=== PATIENT | male | born 1970 | race Caucasian/White ===

== ENCOUNTER 2020-02-23 05:33 | Outpatient (RCR) | payer OTHER, BC ==
[~2020-02-23] VITALS: Ht 198 cm; Wt 190.0 kg
[2020-02-23] MEDS ORDERED: TIZA4CAP PO (12:56)
[2020-02-23] MEDS ORDERED: DULO60CA6 PO (12:56)
[2020-02-23] MEDS ORDERED: LISI10TA2 PO (13:04)
[2020-02-23] MEDS ORDERED: HYDR-3820 PO (13:04)
[2020-02-23] MEDS ORDERED: SILD100T67 PO (13:04)
[2020-02-23] MEDS ORDERED: FURO40TA4 PO (13:04)
[2020-02-23] MEDS ORDERED: GABA300C PO (13:04)
[2020-02-23] MEDS ORDERED: AMIT50TA3 PO (13:04)
[2020-02-23] MEDS ORDERED: CARI3CAP PO (13:04)
[2020-02-23] MEDS ORDERED: CELE100C PO (13:04)
[2020-02-23] MEDS ORDERED: PANT40TA52 PO (13:04)
[2020-02-25] MEDS ORDERED: OXYC-471 PO ×2 (11:40→11:41)
== END 2020-02-23 13:35 | disposition home or self-care (01) ==
LOC: PREOP 05:33
PROVIDERS: ATTEND Orthopaedic Surgery
DX: Z01.812 Encounter for preprocedural laboratory examination (principal); S83.242A Other tear of medial meniscus, current injury, left knee, initial encounter; Z20.828 Contact with and (suspected) exposure to other viral communicable diseases
CPT/HCPCS: 87635

== ENCOUNTER → 2020-02-25 | Day surgery (SDC) | payer OTHER, BC ==
--- NOTE | 2020-02-18 10:16 | HISTORY AND PHYSICAL ---
DATE OF SERVICE: ADMISSION HISTORY AND PHYSICAL This will be for outpatient surgery on 02/25/2020 for left knee arthroscopy. 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 He fell on his flexed knee. He has had grinding, popping and catching in his knee since the time of his fall as well as pain and swelling due to functional impairment and failure to improve with conservative measures. The patient elected to proceed with surgical intervention. REVIEW OF SYSTEMS: No chest pain, no shortness of breath, no dysuria. PAST MEDICAL HISTORY: Lumbar spine, depression, kidney stones, cardiomyopathy, obstructive sleep apnea, neuropathy. PAST SURGICAL HISTORY: ORIF left elbow, gastric bypass, kidney stone removal, cholecystectomy. FAMILY HISTORY: Significant for hypertension, congestive heart failure, COPD, Crohn disease, rheumatoid arthritis, diabetes. PRIMARY CARE PROVIDER: [facility]. MEDICATIONS: Lisinopril, furosemide, Cymbalta, pantoprazole, Vraylar, hydrocodone, Celebrex, Lasix, Protonix, amitriptyline, Neurontin. ALLERGIES: ____. SOCIAL HISTORY: The patient denies alcohol, tobacco use. RADIOGRAPHS: Reveal some diffuse joint space narrowing, patellofemoral joint space narrowing as well. PHYSICAL EXAMINATION: GENERAL: The patient is well-developed, well-nourished, in no acute distress. HEENT: Normocephalic, atraumatic. Pupils are equal, round, reactive to light. Oropharynx is clear. NECK: Supple, no lymphadenopathy. LUNGS: Clear to auscultation bilaterally. HEART: Regular rate and rhythm. ABDOMEN: Soft, nontender, nondistended. EXTREMITIES: The left knee demonstrates mild effusion. He has pain with patellar loading, tenderness along his posterior joint line with flexion. Negative anterior and posterior drawer. No varus valgus laxity. He is tender along his medial joint lines as well. Crepitus noted with patellar loading. 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 PLAN: Left knee arthroscopy, chondroplasty and partial meniscectomy. Risks, benefits, options, ramifications and recovery have been discussed at length with the patient. He understands and wishes to proceed. Job ID: [id number] DocumentID: [id number] Dictated Date: 02/16/2020 12:28:52 Toggle Press Operator Date: 02/16/2020 12:52:36 Dictated By: PETER GILLIS MD
[2020-02-25] VITALS (12 sets, daily range): BP systolic 129–141; BP diastolic 74–86
[~2020-02-25] VITALS: Ht 198 cm; Wt 190.0 kg
[~2020-02-25] MED LIST: AMIT50TA3 PO; BUPIVACAINE 0.25% 30 ML (SENSORCAINE) VIAL ONE; CARI3CAP PO; CELE100C PO; DULO60CA6 PO; FURO40TA4 PO; GABA300C PO; HYDR-3820 PO; HYDROmorphone 2 MG/ML VIAL (DILAUDID) IV ONE; LACTATED RINGERS 1,000 ML IV PRN; LISI10TA2 PO; MIDAZOLAM 2 MG/2 ML (VERSED) VIAL ONE; ONDANSETRON 4 MG/2 ML (SDV) Z0FRAN IVP PRN; OXYC-471 PO; PANT40TA52 PO; SILD100T67 PO; TIZA4CAP PO; ceFAZolin INJECTION 1,000 MG in WATER (STERILE) FOR INJECTION 10 ML IV ONE; fentaNYL INJECTION 100 MCG/2 ML AMP ONE; morphine INJ 10 MG/ML 1ML (SYR OR VIAL) IVP ONE; morphine PF (DURAMORPH) 10 MG/10 ML AMP ONE; oxyCODONE/APAP 5/325MG (PERCOCET 5) TABLET PO PRN
--- NOTE | 2020-02-25 07:47 | Progress Note-Pre Operative ---
Pre-Operative Progress Note H&P Reviewed The H&P was reviewed, patient examined and no changes noted. Date Seen by Provider: Feb 25, 2020 Time Seen by Provider: 07:46 Date H&P Reviewed: Feb 25, 2020 Time H&P Reviewed: 07:46 Pre-Operative Diagnosis: left knee medial meniscus tear and chondromalacia PETER GILLIS MD Feb 25, 2020 07:47
--- NOTE | 2020-02-25 07:48 | Progress Note-Post Operative ---
Post-Operative Progess Note Surgeon (s)/Vp Integrity (s) Surgeon PETER GILLIS MD Vp Integrity: Elio Shen Pre-Operative Diagnosis left knee medial meniscus tear and chondromalacia Post-Operative Diagnosis left knee medial meniscus tear and chondromalacia of the medial and lateral femoral condyles and trochlea Procedure & Operative Findings Date of Procedure 02/25/20 Procedure Performed/Findings left knee arthroscopic partial medial meniscectomy and chondroplasty of the medi al and lateral femoral condyles and trochlea Anesthesia Type GETA Estimated Blood Loss Estimated blood loss (mL): minimal Specimens/Packing Specimens Removed none Packing: none PETER GILLIS MD Feb 25, 2020 07:48
--- NOTE | 2020-02-25 10:49 | Anesthesia-General Post-Op ---
General Patient Condition Mental Status/LOC: Same as Preop Cardiovascular: Satisfactory Nausea/Vomiting: Absent Respiratory: Satisfactory Pain: Controlled Complications: Absent Post Op Complications Complications None Follow Up Care/Instructions Patient Instructions None needed. Anesthesia/Patient Condition Patient Condition Patient is doing well, no complaints, stable vital signs, no apparent adverse anesthesia problems. JANIS KENYON DO Feb 25, 2020 10:49
--- NOTE | 2020-02-25 11:43 | NUR ---
FOLLOW UP APPOINTMENT ALREADY MADE PER PATIENT AND .
--- NOTE | 2020-02-25 13:16 | Physical Therapy Ortho Eval ---
PT Orthopedic Evaluation Type of Surgery Knee Scope left Prior Level of Function Current Living Status: Spouse Locomotion (Upon Admit): Independent Established Durable Medical Eq: Crutches Subjective Subjective Patient in bed pre tx, agrees to PT, has no complaints of pain. No numbness in left leg Entry Into Home: Stairs With Railing Motor Control Motor Control: Motor Control WNL ROM left knee extensin +2 degrees, flexion 90 degrees Transfer SCALE: Activities may be completed with or without assistive devices. 1-Vkeakkrxqj-jxlelcz completes the activity by him/herself with no assistance from a helper. 5-Set-up or Clean-up Assistance-helper sets up or cleans up; patient completes activity. [place] assists only prior to or following the activity. 4-Supervision or Touching Assistance-helper provides verbal cues and/or touching/steadying and/or contact guard assistance as patient completes activity. Assistance may be provided throughout the activity or intermittently. 3-Partial/Moderate Assistance-helper does LESS THAN HALF the effort. [place] lifts, holds or supports trunk or limbs, but provides less than half the effort. 2-Substantial/Maximal Assistance-helper does MORE THAN HALF the effort. [place] lifts or holds trunk or limbs and provides more than half the effort. 7-Nmwiuwspp-edjtle does ALL the effort. Patient does none of the effort to complete the activity. Or, the assistance of 2 or more helpers is required for the patient to complete the activity. If activity was not attempted, code reason: 7-Patient Refused. 9-Not Applicable-not attempted and the patient did not perform the activity before the current illness, exacerbation or injury. 10-Not Attempted due to Environmental Limitations-(lack of equipment, weather restraints, etc.). 88-Not Attempted due to Medical Conditions or Safety Concerns. Transfers (B, C, W/C) (QC): 4 Gait Summary/Comments Patient ambulated 125' with a rolling walker with SBA, went up and down 1 step using a rolling walker with CGA, cues for foot placement. Patient has steady ambulation Treatment Rendered Treatment: Therapeutic Exercises, Gait Train, Step Train Exercise Instruction: Quad Sets, Heel Slides, Ankle Pumps Assessment/Goals Goal Time Frame: 1 Visit Understands HEP: Yes Safe Ambulation: Yes Plan Treatment Plan: Discharge PT/Family Agrees to Plan: Yes Time Time In: 1155 Time Out: 1206 Total Billed Treatment Time: 11 Billed Treatment Time 1 visit EVL 11' DANIEL BURGER PT Feb 25, 2020 13:16
--- NOTE | 2020-02-25 18:06 | OPERATIVE REPORT ---
DATE OF SERVICE: PREOPERATIVE DIAGNOSES: 1. Left knee medial meniscus tear. 2. Left knee chondromalacia of the medial femoral condyle. POSTOPERATIVE DIAGNOSES: 1. Left knee medial meniscus tear. 2. Left knee chondromalacia of the medial femoral condyle. 3. Left knee chondromalacia of the lateral femoral condyle. 4. Left knee chondromalacia of the trochlea. PROCEDURES PERFORMED: 1. Left knee arthroscopic partial medial meniscectomy. 2. Left knee arthroscopic chondroplasty of the medial femoral condyle. 3. Left knee arthroscopic chondroplasty of the lateral femoral condyle. 4. Left knee arthroscopic chondroplasty of the trochlea. SURGEON: Tomy Gillis MD. ENGINEERING SPECIALIST: Elio Shen, who assisted throughout the procedure and closed the incisions. ANESTHESIA: General endotracheal by Dr. Reis. TOURNIQUET TIME: Not applicable. ESTIMATED BLOOD LOSS: Minimal. DRAINS: None. COMPLICATIONS: None. POSTOPERATIVE PLAN: Routine arthroscopy protocol. The patient was transferred to the recovery room awake and in stable condition. STATEMENT OF MEDICAL NECESSITY: The patient is a 49-year-old gentleman with complaints of left medial knee pain, catching, locking and swelling. He had tenderness along the medial joint line and pain medially with Lior's. He also had some joint space narrowing noted radiographically. Due to functional impairment and failure to improve with conservative measures, the patient elected to proceed with surgical intervention. Examination under anesthesia revealed range of motion 0/0/130 with negative Brandan, negative anterior and posterior drawer. No varus or valgus laxity, negative pivot shift. Arthroscopic findings of the patella demonstrated grade IV chondral loss centrally in a 15 x 20 area with no unstable chondral flaps were noted otherwise. The trochlea demonstrated grade II chondral flap centrally in a 10 x 10 area. The medial and lateral gutters were clear. The ACL and PCL were intact. The lateral compartment demonstrated grade II to III chondral flaps of the central portion of the femoral condyle in a 10 x 12 area. The medial compartment demonstrated a flap tear of the posterior horn/body junction involving approximately 20% of the junction of the meniscus and there were grade II to III chondral flaps of the central portion of the femoral condyle in a 10 x 12 area. PROCEDURE IN DETAIL: After the risks and benefits of the procedure were discussed and questions were answered, informed consent was signed and placed on the chart, the operative site was confirmed in the preoperative holding area initialed by the surgeon. The patient was then transferred to the operating room and after adequate levels of general endotracheal anesthetic were obtained, a timeout was called, confirming the operative site. Examination under anesthesia was performed with the above findings noted. The left lower extremity was prepped and draped in the usual sterile fashion. The knee joint was injected with 60 mL of fluid and a standard inferolateral portal placed with the arthroscope under direct visualization, inferior medial portal was created. The menisci and cruciates were carefully probed with the above findings noted. The unstable chondral flaps on the trochlea were debrided with a shaver back to a stable edge. Scope was redirected into the lateral compartment and unstable chondral flaps on the lateral femoral condyle were debrided with the shaver back to a stable edge. Scope was redirected into the medial compartment and the unstable chondral flaps in the medial femoral condyle were debrided with shaver back to a stable edge and the medial meniscus flap tear was debrided with a shaver back to a stable edge. This was carefully probed with no further tearing or instability noted. The knee was copiously irrigated. The port sites were closed with 4-0 nylon in a simple interrupted fashion. The knee was injected with Duramorph. The port sites were infiltrated with plain Marcaine. A soft dressing was applied and the patient was transferred to the recovery room awake and in a stable condition. Job ID: [id number] DocumentID: [id number] Dictated Date: 02/25/2020 10:28:38 Correctional Officer Captain Date: 02/25/2020 18:05:32 Dictated By: TOMY GILLIS MD
== END ==
LOC: SDC 07:41
PROVIDERS: ATTEND Orthopaedic Surgery
DX: S83.242A Other tear of medial meniscus, current injury, left knee, initial encounter (principal); M94.262 Chondromalacia, left knee; I10 Essential (primary) hypertension; F32.9 Major depressive disorder, single episode, unspecified; G62.9 Polyneuropathy, unspecified; M06.9 Rheumatoid arthritis, unspecified; G47.33 Obstructive sleep apnea (adult) (pediatric); Z79.899 Other long term (current) drug therapy; Z88.8 Allergy status to other drugs, medicaments and biological substances
CPT/HCPCS: 87081

== ENCOUNTER 2020-03-31 05:41 | Outpatient (RCR) | payer OTHER, BC ==
[~2020-03-31 05:41] MED LIST changes: -BUPIVACAINE 0.25% 30 ML (SENSORCAINE) VIAL ONE; -HYDROmorphone 2 MG/ML VIAL (DILAUDID) IV ONE; -LACTATED RINGERS 1,000 ML IV PRN; -LISI10TA2 PO; +LISI10TA25 PO; -MIDAZOLAM 2 MG/2 ML (VERSED) VIAL ONE; -ONDANSETRON 4 MG/2 ML (SDV) Z0FRAN IVP PRN; -OXYC-471 PO; +OXYC1TAB11 PO; -ceFAZolin INJECTION 1,000 MG in WATER (STERILE) FOR INJECTION 10 ML IV ONE; -fentaNYL INJECTION 100 MCG/2 ML AMP ONE; -morphine INJ 10 MG/ML 1ML (SYR OR VIAL) IVP ONE; -morphine PF (DURAMORPH) 10 MG/10 ML AMP ONE; -oxyCODONE/APAP 5/325MG (PERCOCET 5) TABLET PO PRN
== END 2020-06-29 | disposition home or self-care (01) ==
LOC: PREOP 05:41
PROVIDERS: ATTEND Orthopaedic Surgery
DX: Z01.818 Encounter for other preprocedural examination (principal)

== ENCOUNTER 2021-01-12 18:27 | Emergency (ER) | payer OTHER, BC ==
[~2021-01-12] VITALS: Ht 195 cm; Wt 193.6 kg
[~2021-01-12 18:27] MED LIST changes: -DULO60CA6 PO; +DULO60CA7 PO
--- OUTSIDE RECORDS SUMMARY | 2021-01-12 18:33 | XMS REPORT | Encounter Summary ---
Author Author [facility] Organization [facility] Address Unknown Phone Unavailable Care Team Providers Care Orthopaedic Physician Assistant Name Role Phone Felicitas Prado Unavailable [phone] Madeline Richmond RN Unavailable Unavailable Lawrence Jorge MD Unavailable Jonathan Saldaña MD Unavailable Unavailable Rogelio Joiner PA-C PCP Reason for Referral * Pain Authorization (Routine) Referred By Contact Referred To Contact Status Reason Specialty Diagnoses / Procedures Edna Santacruz APRN-NP [address] [place] [address] [facility] [address] [place] [address] Authorized Anesthesia Pain Diagnoses Lumbar radiculopathy P rocedures K[facility] AMB SPINE INJECT SNRB/TFESI LUMBAR/SACRAL Electronically signed by Edna ROBERTS at Reason for Visit * Reason Comments Follow Up fuv on low back pain Encounter Details Care Team Description Date Type Department Edna Santacruz APRN-NP [address] [place] [address] [phone] Lumbar radiculopathy (Primary Dx); Chronic right-sided low back pain without sciatica; Medication management; S/P epidural steroid injection 11/15/2020 Office Visit [facility] Med: [facility]: [id number] [place] [id number] Social History Date Tobacco Use Types Packs/Day Years Used Never Smoker 0 0 Smokeless Tobacco: Chew Current User Comments: current use of smokless tobacc o (chew) Comments Alcohol Use Standard Drinks/Week Yes 8 (1 standard drink = 0.6 o z pure alcohol) Alcohol Habits Answer Date Recorded How often do you have a drink containing alcohol? No t asked How many drinks containing alcohol do you have on No t asked a typical day when you are drinking? How often do you have six or more drinks on one Weekly 02/23/2020 occasion? Comment: Not asked Sex Assigned at Date Recorded Male 06/08/2019 3:37 PM CDT Date Recorded COVID-19 Exposure Response 12/13/2020 12:02 PM CDT In the last month, have you been in contact with No / Unsure someone who was confirmed or suspected to have Coronavirus / COVID-19? documented as of this encounter Last Filed Vital Signs Reading Time Taken Comments Vital Sign 128/61 11/15/2020 10:15 AM CDT Blood Pressure 66 11/15/2020 10:15 AM CDT Pulse 36.7 C (98.1 F) 11/15/2020 10:15 AM CDT Temperature 22 11/15/2020 10:15 AM CDT Respiratory Rate 100% 11/15/2020 10:15 AM CDT Oxygen Saturation - - Inhaled Oxygen Concentration 194.6 kg (429 lb) 11/15/2020 10:15 AM CDT Weight 198.1 cm (6' 6") 11/15/2020 10:15 AM CDT Height 49.58 11/15/2020 10:15 AM CDT Body Mass Index documented in this encounter Functional Status Date of Assessment Functional Status Response 05/07/2020 Does the patient have a hearing impairment: No 05/07/2020 Does the patient have a visual impairment: Yes 05/07/2020 Does the patient have impaired ambulation: Yes 05/07/2020 Does the patient have an activity of daily living No (ADL) impairment: 05/07/2020 Does the patient have an instrumental activity of Ye s daily living (IADL) impairment: Date of Assessment Cognitive Status Response 05/07/2020 Does the patient have a cognitive impairment: No documented as of this encounter Ordered Prescriptions Start Date End Date Prescription Sig Dispensed Refills 11/15/2020 HYDROcodone/acetaminophen Take one 45 tablet 0 (NORCO) 10/325 mg tablet tablet by mouth every 6 hours as needed for Pain 01/11/2021 01/03/2021 HYDROcodone/acetaminophen Take one 30 tablet 0 (NORCO) 10/325 mg tablet tablet by mouth every 6 hours as needed for Pain 12/14/2020 01/03/2021 HYDROcodone/acetaminophen Take one 30 tablet 0 (NORCO) 10/325 mg tablet tablet by mouth every 6 hours as needed for Pain documented in this encounter Progress Notes * Edna Santacruz, WELDING MACHINE OPERATOR HELPER ARC-VIDEO OPERATOR - 11/15/2020 10:00 AM CDT SPINE CENTER CLINIC NOTE SUBJECTIVE: Kevin Grant is a 50 y.o.-year-old male with history of cardiomyopat hy and L2-L3 disc extrusion, who presents for scheduled follow up for right-side d radicular low back pain. The patient was last seen via telehealth on . At that time, he was provided prescription refills for hydrocodone for 3 carmina hs as well as recommend continuing with walking program and home exercises. Terrie gruber has previously underwent a right L3 transforaminal epidural steroid injecti on on 07/12/2020. Patient reports greater than 80% reduction in his pain that la sted greater than 3 months. Pain is now back to preprocedural level. Patient i s interested in repeating the injection at this time. He has seen Dr. Sandee bird n August for follow-up visit. Patient is scheduled to have an EMG completed in [facility]. He still needs to lose additional weight to be considered a surgical c andidate. 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 He continues to take hydrocodone with functional benefits. He denies any ad verse effects. VAS pain score is rated 7 out of 10 today. Patient does report intermittent right knee buckling with stairs. He is not currently wearing a bra ce. He denies any falls but has had some near misses. Denies any new overt wea knesses in the lower extremities. Denies any loss of control of bowel or bladde r. Last MRI lumbar spine was completed in February 2020. Review of Systems Current Outpatient Medications: amitriptyline (ELAVIL) 50 mg tablet, Take by mouth at bedtime daily., Disp : , Rfl: celecoxib (CELEBREX) 100 mg capsule, TAKE ONE (1) CAPSULE BY MOUTH TWICE DA VILMA , Disp: 180 capsule, Rfl: [address] (CYMBALTA) 30 mg capsule, Take 30 mg by mouth twice daily., D isp: , Rfl: furosemide (LASIX) 40 mg tablet, Take 40 mg by mouth daily., Disp: , Rfl: HYDROcodone/acetaminophen (NORCO) 10/325 mg tablet, Take one tablet by mout h every 6 hours as needed for Pain, Disp: 45 tablet, Rfl: 0 [START ON 12/14/2020] HYDROcodone/acetaminophen (NORCO) 10/325 mg tablet, Ta ke one tablet by mouth every 6 hours as needed for Pain, Disp: 30 tablet, Rfl: 0 [START ON 01/11/2021] HYDROcodone/acetaminophen (NORCO) 10/325 mg tablet, T joy one tablet by mouth every 6 hours as needed for Pain, Disp: 30 tablet, Rfl: 0 lisinopriL (ZESTRIL) 10 mg tablet, Take by mouth daily., Disp: , Rfl: pantoprazole DR (PROTONIX) 40 mg tablet, Take 40 mg by mouth daily., Disp: , Rfl: pregabalin (LYRICA) 75 mg capsule, , Disp: , Rfl: tiZANidine (ZANAFLEX) 4 mg tablet, Take one-half tablet to one tablet by mo uth twice daily as needed., Disp: 90 tablet, Rfl: 3 Verification of Patch Placement and Integrity - Lidocaine 5%, , Disp: , Rfl : vilazodone (VIIBRYD) 20 mg tablet, Take 40 mg by mouth daily., Disp: , Rfl: VRAYLAR 3 mg cap, 1.5 mg. 1.5 MG, Disp: , Rfl: Allergies Allergen Reactions Carvedilol SEE COMMENTS Physical Exam Vitals: 11/15/20 1015 BP: 128/61 BP Source: Arm, Right Upper Patient Position: Sitting Pulse: 66 Resp: 22 Temp: 36.7 C (98.1 F) TempSrc: Oral SpO2: 100% Weight: (!) 194.6 kg (429 lb) Height: 198.1 cm (78") PainSc: Seven Oswestry Total Score:: 52 Pain Score: Seven Body mass index is 49.58 kg/m. General: 50 y.o. male appears stated age, in no acute distress HEENT: Normocephalic, atraumatic Neck: No thyroidmegaly Cardiovascular: Well perfused Pulmonary: Unlabored respirations Extremities: No cyanosis, clubbing, or edema Skin: Warm and dry Psychiatric: Appropriate mood and affect Musculoskeletal: Decreased range of motion with lumbar flexion, extension, and l ateral rotation. Tender to palpation at lower lumbar facets on the right. Facet loading is positive bilaterally. Neurologic: Weakness with right knee extension, ankle dorsiflexion, and EHL 3/5 otherwise, lower extremity myotomes are all 5/5. Decreased sensation right L4-S 1 dermatomal distribution otherwise, lower extremity dermatomes are all intact t o light touch. Deep tendon reflexes are symmetric at patella and achilles. Do wnward Babinski. No ankle clonus. IMPRESSION: 1. Lumbar radiculopathy 2. Chronic right-sided low back pain without sciatica 3. Medication management 4. S/P epidural steroid injection PLAN: 1. Lifestyle modifications. Recommend activity as tolerated. Avoid provocativ e maneuvers. Keep spine in neutral position. Continue with weight loss efforts. Patient is scheduled to see nutrition thru his work. He is consider seeing a ba [facility] surgeon. 2. Medications. Patient provided prescription for 3 months of Hydrocodone. P atient provided with 1 additional month of 45 tabs and then decreased back to 30 tabs per month for the remaining 2 months. Medication usage and safety reviewed .I have counseled him to take the minimally effective dose, avoid taking it sc heduled and chronically, and to only utilize when he is having severe pain. 3. Therapy. Continue with home exercises. Discussed hinged knee brace. Patient will contact us if he would like a prescription. 4. Imaging/Diagnostics. Ordered UDS today. 5. Interventions. Recommend repeating right L3 TFESI. Patient has previously u nderwent injection with greater than 80% relief for more than 3 months. He is a ble to take less opioid pain medication after injections. Discussed risks of th e procedure including pain, bleeding, infection, and damage to nearby structures . Patient has elected to proceed with injection at this time. 6. Follow-up. Patient to follow-up for injection and in 3 months for medicatio n refills. ADDENDUM: UDS from 11/15/2020 demonstrated metabolites of hydrocodone, hydromorph one, and nor hydrocodone, which are all metabolites of hydrocodone and consisten t with current medication prescriptions. There is also an metabolites of ethano l including ethyl glucuronide and ethyl sulfate. documented in this encounter Plan of Treatment Order Schedule Name Type Priority Associated Diag noses 2 Occurrences starting 11/15/2020 until 11/15/2021, 1 completed [facility] AMB SPINE INJECT Procedures Routine Lumbar rad iculopathy SNRB/TFESI LUMBAR/SACRAL Expected: 11/15/2020 (Approximate), Expi res: 11/15/2021 AMPHETAMINES-URINE RANDOM Lab Routine Lumb ar radiculopathy Medication management Expected: 11/15/2020 (Approximate), Expi res: 11/15/2021 BARBITURATES-URINE RANDOM Lab Routine Medi cation management Expected: 11/15/2020 (Approximate), Expi res: 11/15/2021 BENZODIAZEPINES-URINE Lab Routine Medicati on management RANDOM Expected: 11/15/2020 (Approximate), Expi res: 11/15/2021 CANNABINOIDS-URINE RANDOM Lab Routine Medi cation management Expected: 11/15/2020 (Approximate), Expi res: 11/15/2021 COCAINE-URINE RANDOM Lab Routine Medicatio n management Expected: 11/15/2020 (Approximate), Expi res: 11/15/2021 PHENCYCLIDINES-URINE Lab Routine Medicatio n management RANDOM Expected: 11/15/2020 (Approximate), Expi res: 11/15/2021 METHADONE-URINE SCREEN Lab Routine Medicat ion management Expected: 11/15/2020 (Approximate), Expi res: 11/15/2021 OXYCODONE URINE SCREEN Lab Routine Medicat ion management Expected: 11/15/2020 (Approximate), Expi res: 11/15/2021 OPIATES 300 OR Lab Routine Medication esdras gement GREATER-URINE RANDOM documented as of this encounter Results * Selective Nerve Rootblock/Transforaminal Lumbar/Sacral (12/13/2020 12:03 PM CDT) Narrative Performed At Law Johnson MD 12/13/2020 3:26 PM OTHER OUTSIDE LAB Selective Nerve Rootblock/Transforamina l Lumbar/Sacral Procedure: transforaminal epidural Laterality: right on 12/13/2020 12:03 PM Location: lumbar - L4-5 Consent: Consent obtained: verbal and written Consent given by: patient Risks discussed: allergic reaction, ble eding, bruising, infection, nerve damage, no change or worsening in pain and reaction to medication Discussed with patient the purpose of t he treatment/procedure, other ways of treating my condition, including no treatment/ procedure and the risks and benefits of the alternatives. Patie nt has decided to proceed with treatment/procedure. [place] Protocol: Relevant documents: relevant documents present and verified Test results: test results available an d properly labeled Imaging studies: imaging studies availa ble Required items: required blood products , implants, devices, and special equipment available Site marked: the operative site was mana negron Patient identity confirmed: Patient tushar ntify confirmed verbally with patient. Time out: Immediately prior to procedur e a "time out" was called to verify the correct patient, procedure, equipme nt, clinical support associate and site/side marked as required Procedures Details: Indications: pain and diagnostic evalua tion Prep: chlorhexidine Patient position: prone Estimated Blood Loss: minimal Specimens: none Number of Joints: 1 Guidance: fluoroscopy Contrast: Procedure confirmed with cont rast under live fluoroscopy. Needle and Epidural Catheter: quincke Needle size: 25 G Injection procedure: Incremental inject ion Patient tolerance: Patient tolerated th e procedure well with no immediate complications. Pressure was applied, an d hemostasis was accomplished. Comments: DESCRIPTION OF PROCEDURE: T he procedure risks and benefits were explained to the patient. Informed co nsent was obtained. The patient was placed in the prone position on the flu oroscopy table with a pillow under the abdomen to help reduce lumbar lordo sis. Blood pressure cuff and oxygen saturation monitor were attached and the patient was monitored throughout the entire procedure. The L3 vertebral body was identified with the use of fluoroscopy in the AP v iew; the C-arm was obliqued to obtain a Bowers view. The right L 3 pedicle was visualized. The skin was prepped using Chlorhexadine and reid ped in aseptic fashion. The C-arm was rotated slightly obliquely towards the left side to visualize the area just below the foramen. Skin and subc utaneous tissue were anesthetized using 3 mL of 1 percent lidocaine with a 27-gauge, 1-1/2 inch needle. Next, a 4.69-inch, 25-gauge spinal need le was slowly advanced to the 6 o'clock position to the right of the L3 pedicle just cephalad to the superior articular process. The latte r part of the needle advancement was performed with the C-arm in the lateral view. When the needle tip was visualized to be in the right L3 neural foramen, the C-arm was changed back to AP view. Then, 0.6 mL of cont rast dye was injected. There was spread of dye revealing right L4 nerve root. After negative aspiration, a 2 mL solution containing 7.5 mg of dexa methasone and 0.5 mL of 1 percent lidocaine was injected in increments. T he stylet was reinserted and then removed. After the procedure, the patie nt's blood pressure, heart rate, oxygen saturation, and VAS pain score w ere recorded in the chart. There were no complications. The manolo ent tolerated the procedure well and was brought to the room for observation in stable condition and discharged with written discharge instructions. PLAN OF CARE: The patient is to follo w up in the interventional spine clinic in 3 weeks. The patient was advised to contact the interventional spine center for any of the following: Fever, chills, or night sweats. New onset severe sharp pain. Any new upper or lower extremity weakne ss or numbness. Any questions regarding the procedure. If unable to contact the interventional spine center, the patient was instructed to go to the local emergency room. Performing Organization Address City/State/ZIP Code P jos[place] Number OTHER OUTSIDE LAB documented in this encounter Visit Diagnoses Diagnosis Lumbar radiculopathy - Primary Thoracic or lumbosacral neuritis or rad iculitis, unspecified Chronic right-sided low back pain witho ut sciatica Medication management Encounter for long-term (current) use o f other medications S/P epidural steroid injection documented in this encounter Discontinued Medications Start Date End Date Medication Sig Discontinue Reason 09/17/2020 11/15/2020 HYDROcodone/acetaminophen Take one (NORCO) 10/325 mg tablet tablet by mouth every 12 hours as needed for Pain 08/20/2020 11/15/2020 HYDROcodone/acetaminophen Take one (NORCO) 10/325 mg tablet tablet by mouth every 12 hours as needed for Pain documented as of this encounter Additional Health Concerns Assessment Noted Time A fall risk assessment has been completed for the pat ient 11/15/2020 10:16 AM CDT documented as of this encounter
--- OUTSIDE RECORDS SUMMARY | 2021-01-12 18:33 | XMS REPORT | Encounter Summary ---
Author Author [facility] Organization [facility] Address Unknown Phone Unavailable Care Team Providers Care Hospice Spiritual Care Coordinator Name Role Phone JohanRolandFelicitasreta ROBERTS Unavailable [phone] Madeline Richmond RN Unavailable Unavailable Lawrence Jorge MD Unavailable Jonathan Saldaña MD Unavailable Unavailable Rogelio Joiner PA-C PCP Reason for Referral * Radiology Services (Routine) Referred By Contact Referred To Contact Status Reason Specialty Diagnoses / [place] [address] [place] [address] New Request Radiology Procedures FLUORO GUIDANCE FOR SPINE INJ RAD Electronically signed by Law Johnson MD at Reason for Visit * Radiology Services (Routine) Referred By Contact Referred To Contact Status Reason Specialty Diagnoses / [place] [address] [place] [address] New Request Radiology Procedures FLUORO GUIDANCE FOR SPINE INJ RAD Encounter Details Care Team Description [place] [address] [place] [address] [phone] 12/13/2020 Hospital Imaging: [facility], Encounter [facility] [address] [place] [phone] Social History Date Tobacco Use Types Packs/Day [...] / COVID-19? documented as of this encounter Functional Status Date of Assessment [...] impairment: No documented as of this encounter Medications at Time of Discharge Start Date End Date Medication Sig Dispensed Refills 03/19/2016 amitriptyline (ELAVIL) 50 Take by 0 mg tablet mouth at bedtime daily. 11/11/2020 celecoxib (CELEBREX) 100 TAKE ONE (1) 180 capsule 0 mg capsule CAPSULE BY MOUTH TWICE DAILY duloxetine DR (CYMBALTA) Take 30 mg by 0 30 mg capsule mouth twice daily. 03/31/2019 furosemide (LASIX) 40 mg Take 40 mg by 0 tablet mouth daily. 11/15/2020 HYDROcodone/acetaminophen Take one 45 tablet 0 (NORCO) 10/325 mg tablet tablet by mouth every 6 hours as needed for Pain 03/19/2016 lisinopriL (ZESTRIL) 10 Take by 0 mg tablet mouth daily. 05/12/[address] Take 40 mg by 0 (PROTONIX) 40 mg tablet mouth daily. 04/30/2020 pregabalin (LYRICA) 75 mg Take 150 mg 0 capsule by mouth twice daily. 11/03/2019 tiZANidine (ZANAFLEX) 4 Take one-half 90 tablet 3 mg tablet tablet to one tablet by mouth twice daily as needed. 12/17/2018 Verification of Patch 0 Placement and Integrity - Lidocaine 5% vilazodone (VIIBRYD) 20 Take 40 mg by 0 mg tablet mouth daily. 01/20/2020 VRAYLAR 3 mg cap 1.5 mg. 1.5 0 MG 12/14/2020 01/03/2021 HYDROcodone/acetaminophen Take one 30 tablet 0 (NORCO) 10/325 mg tablet tablet by mouth every 6 hours as needed for Pain 01/11/2021 01/03/2021 HYDROcodone/acetaminophen Take one 30 tablet 0 (NORCO) 10/325 mg tablet tablet by mouth every 6 hours as needed for Pain documented as of this encounter Discharge Disposition Code Departure Means Destination Disposition Home Home or Self Care documented in this encounter Plan of Treatment Not on filedocumented as of this encounter Procedures Comments Procedure Name Priority Date/Time Associated Diag nosis FLUORO GUIDANCE FOR SPINE Routine 12/13/2020 INJ RAD 1:36 PM CDT documented in this encounter Results * FLUORO GUIDANCE FOR SPINE INJ RAD (12/13/2020 1:36 PM CDT) Specimen Narrative Performed At This order has been auto finalized and does not conta in a result. [facility] Performing Organization Address City/State/ZIP Code P josé Number [facility] documented in this encounter Visit Diagnoses Not on filedocumented in this encounter Additional Health Concerns Assessment Noted Time A fall risk assessment has been completed for the pat ient 11/15/2020 10:16 AM CDT documented as of this encounter
--- OUTSIDE RECORDS SUMMARY | 2021-01-12 18:33 | XMS REPORT | Clinical Summary ---
Author Author [facility] Organization [facility] Address Unknown Phone Unavailable Care Team Providers Care Fur Mixer Operator Name Role Phone Felicitas Prado Unavailable [phone] Madeline Richmond RN Unavailable Unavailable Lawrence Jorge MD Unavailable Jonathan Saldaña MD Unavailable Unavailable Rogelio JoinerC PCP Source Comments Some departments are not documenting in the electronic medical record. If you d o not see the information that you expected, contact Release of Information in [facility] Information Management department at [phone] for further assistan ce in locating additional records.[facility] Allergies Comments Active Allergy Reactions Severity Noted Date Carvedilol SEE COMMENTS Low 03/19/2015 Medications End Date Status Medication Sig Dispensed Refills Start Date Active furosemide (LASIX) 40 mg Take 40 mg by 0 03/31 tablet mouth daily. [address] Take 40 mg by 0 (PROTONIX) 40 mg tablet mouth daily. 0 Active Verification of Patch 0 Placement and Integrity - 9 Lidocaine 5% Active amitriptyline (ELAVIL) 50 Take by 0 mg tablet mouth at 7 bedtime daily. Active lisinopriL (ZESTRIL) 10 Take by 0 mg tablet mouth daily. 7 Active tiZANidine (ZANAFLEX) 4 Take one-half 90 tablet 3 mg tablet tablet to one 0 tablet by mouth twice daily as needed. Active VRAYLAR 3 mg cap 1.5 mg. 1.5 0 MG [address] (CYMBALTA) Take 30 mg by 0 30 mg capsule mouth twice daily. Active pregabalin (LYRICA) 75 mg Take 150 mg 0 04/19 capsule by mouth 1 twice daily. Active vilazodone (VIIBRYD) 20 Take 40 mg by 0 mg tablet mouth daily. Active celecoxib (CELEBREX) 100 TAKE ONE (1) 180 capsule 0 mg capsule CAPSULE BY 1 MOUTH TWICE DAILY Active HYDROcodone/acetaminophen Take one 45 tablet 0 (NORCO) 10/325 mg tablet tablet by 1 mouth every 6 hours as needed for Pain Active HYDROcodone/acetaminophen Take one 30 tablet 0 (NORCO) 10/325 mg tablet tablet by 1 mouth every 12 hours as needed for Pain 01/03/2021 Discontinued HYDROcodone/acetaminophen Take one 30 tablet 0 (NORCO) 10/325 mg tablet tablet by 1 mouth every 6 hours as needed for Pain 01/03/2021 Discontinued HYDROcodone/acetaminophen Take one 30 tablet 0 (NORCO) 10/325 mg tablet tablet by 1 mouth every 6 hours as needed for Pain Active Problems Problem Noted Date DDD (degenerative disc disease), lumbar 11/29/2020 Lumbar polyradiculopathy 11/29/2020 Nephrolithiasis 09/08/2013 Encounters Care Team Description Date Type Specialty Edna Santacruz APRN-NP S/P epidural steroid injection (Primary Dx); Lumbar radiculopathy; Medication management 01/03/2021 Office Visit Rehabilitation [facility] Telehealth 01/03/2021 Travel Edna Santacruz APRN-NP 01/03/2021 Refill Rehabilitation [facility] Law Johnson MD 12/13/2020 Hospital Radiology Encounter Law Johnson MD 12/13/2020 Hospital Anesthesia Pain Encounter 12/13/2020 Travel Mable Breaux MD Lumbar polyradiculopathy (Primary Dx); DDD (degenerative disc disease), lumbar 11/29/2020 Office Visit Rehabilitation [facility] 11/29/2020 Travel Edna Santacruz APRN-NP Lumbar radiculopathy (Primary Dx); Chronic right-sided low back pain without sciatica; Medication management; S/P epidural steroid injection 11/15/2020 Office Visit Rehabilitation [facility] 11/15/2020 Travel Edna Santacruz APRN-DAPHNIE 11/09/2020 Refill Rehabilitation [facility] from Last 3 Months Immunizations Name Administration Dates Next Due COVID-19 (JEFF & 07/28/2020 JEFF/FADI) Recombinant Protein VACC, 0.5 mL (PF) Flu vaccine, inj 01/09/2019 unspecified (Historical) MMR Vaccine 03/25/2007 Surgical History Surgery Date Site/Laterality Comments ORIF HUMERUS left arm DECOMPRESSION GASTRIC BYPASS CHOLECYSTECTOMY URETEROSCOPY Medical History Medical History Date Comments Depression Deafness left ear Obesity Urolithiasis Anxiety 1994 Joint pain 03/19/1998 Nerve injury Varicose veins Degenerative disc disease, cervical Degenerative disc disease, lumbar Degenerative disc disease, thoracic Kidney stones 09/16/2013 Cardiomyopathy (HCC) Family History Medical History Relation Name Comments Heart problem Father Arthur Bleeding Disorders Mother Jian HX blood cl ots Heart problem Mother [place] Osteoporosis Mother Jian Relation Name Status Comments Father Arthur Mother Jian Social History Date Tobacco Use Types Packs/Day [...] PM CDT Date Recorded COVID-19 Exposure Response 01/03/2021 2:45 PM CDT In the last month, have you been in contact with No / Unsure someone who was confirmed or suspected to have Coronavirus / COVID-19? Last Filed Vital Signs Reading Time Taken Comments Vital Sign 121/73 12/13/2020 1:45 PM CDT Blood Pressure 97 12/13/2020 1:31 PM CDT Pulse 36.6 C (97.9 F) 12/13/2020 12:15 PM CDT Temperature 16 11/29/2020 1:25 PM CDT Respiratory Rate 100% 12/13/2020 1:45 PM CDT Oxygen Saturation - - Inhaled Oxygen Concentration 194.6 kg (429 lb) 01/03/2021 2:43 PM CDT Weight 198.1 cm (6' 6") 01/03/2021 2:43 PM CDT Height 49.58 01/03/2021 2:43 PM CDT Body Mass Index Plan of Treatment Health Maintenance Due Date Last Done Comments HIV SCREENING 10/12/1986 DTAP/TDAP VACCINES (1 - 10/12/1989 Tdap) HEPATITIS C SCREENING 10/12/1989 PHYSICAL (COMPREHENSIVE) 10/12/1989 EXAM INFLUENZA VACCINE 10/17/2020 01/09/2019 COVID-19 VACCINE Completed 07/28/2020 Procedures Comments Procedure Name Priority Date/Time Associated Diag nosis FLUORO GUIDANCE FOR SPINE Routine 12/13/2020 INJ RAD 1:36 PM CDT DE NJX AA&/STRD TFRML EPI Routine 12/13/2020 Lumb ar radiculopathy LUMBAR/SACRAL 1 LEVEL 12:03 PM CDT DE NERVE CONDUCTION Routine 11/29/2020 DDD (degen erative disc STUDIES 3-4 STUDIES 1:30 PM CDT disease), lumbar Lumbar radicular pain Chronic midline low back pain with sciatica, sciatica laterality unspecified Tobacco use disorder BMI 45.0-49.9, adult (HCC) Foraminal stenosis of lumbar region DE NDL EMG 1 XTR W/WO Routine 11/29/2020 DDD (deg enerative disc RELATED PARASPINAL AREAS 1:30 PM CDT disease), ryan mbar Lumbar radicular pain Chronic midline low back pain with sciatica, sciatica laterality unspecified Tobacco use disorder BMI 45.0-49.9, adult (HCC) Foraminal stenosis of lumbar region from Last 3 Months Results * FLUORO GUIDANCE FOR SPINE INJ RAD (12/13/2020 1:36 PM CDT) Specimen Narrative Performed At This order has been auto finalized and does not conta in a result. [facility] Performing Organization Address City/State/ZIP Code P josé Number [facility] * Selective Nerve Rootblock/Transforaminal Lumbar/Sacral (12/13/2020 12:03 [...] nt has decided to proceed with treatment/procedure. [place] Protocol: Relevant documents: relevant documents present and verified Test results: test results available an d properly labeled Imaging studies: imaging studies availa ble Required items: required blood products , implants, devices, and special equipment available Site marked: the operative site was [facility] Patient identity confirmed: Patient tushar ntify confirmed verbally with patient. Time out: Immediately prior to procedur e a "time out" was called to verify the correct patient, procedure, equipme nt, support technician and site/side marked as required Procedures Details: [...] Code P josé Number OTHER OUTSIDE LAB * EMG PROCEDURE (11/29/2020 1:30 PM CDT) Narrative Performed At OTHER OUTSIDE LAB Mable Breaux MD 11/29/2020 2:08 PM Electrodiagnostic Laboratory Report Impression: ABNORMAL 1. There is electrodiagnostic evidence of acute on chronic right L4-S1 polyradiculopathy. 2. There is no evidence of a right tibi al or fibular mononeuropathy. 3. There is no evidence of peripheral p olyneuropathy. Clinical Correlation: Follow-up with referring physician. Marcela soliman the progression of the radiculopathy since last EMG/NCS dated 08/22/2019, repeat imaging may be warranted. Thank you for allowing me to perform el ectrodiagnostic testing on your patients. A full EMG/NCS report will be scanned into [employer]EP[employer], including waveforms. If you have any further questions or comments, please do not hesitate to call. Mable Breaux MD Diplomate, [place] Board of Physical M edicine and Rehabilitation Diplomate, [place] Association of Neur omuscular and Electrodiagnostic Medicine Procedure Note Mable Breaux MD - 11/29/2020 1:30 PM CDT Electrodiagnostic Laboratory Report Impression: ABNORMAL 1. There is electrodiagnostic evidence o f acute on chronic right L4-S1 polyradiculopathy. 2. There is no evidence of a right tibia l or fibular mononeuropathy. 3. There is no evidence of peripheral po lyneuropathy. Clinical Correlation: Follow-up with referring physician. Given the progression of the radiculopathy since last EMG/NCS dated 08/22/2019, repeat imaging may be warranted. Thank you for allowing me to perform electrodiagnostic testing on your patients. A full EMG/NCS report will be scanned into O2/EPIC, including waveforms. If you have any further questions or comments, please do not hesitate to call. 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 needed
--- OUTSIDE RECORDS SUMMARY | 2021-01-12 18:33 | XMS REPORT | Encounter Summary ---
Author Author [facility] Organization [facility] Address Unknown Phone Unavailable Care Team Providers Care Public Policy Manager Name Role Phone Johan Felicitas ROBERTS Unavailable [phone] Madeline Richmond RN Unavailable Unavailable Lawrence Jorge MD Unavailable Jonathan Saldaña MD Unavailable Unavailable Rogelio Joiner-C PCP Reason for Visit * Reason Comments Procedure EMG * Consult, Test & Treat (Routine) Referred By Contact Referred To Contact Status Reason Specialty Diagnoses / Procedures Terrence Ignacio MD [address] [facility] [place] [address] Mable Breaux MD [address] [place] [address] Authorized Specialty Services Physical Diagnoses Required Medicine and DDD (degenerative Rehabilitation / disc disease), Rehabilitation lumbar Medicine Lumbar radicular pain Chronic midline low back pain with sciatica, sciatica laterality unspecified Tobacco use disorder BMI 45.0-49.9, adult (HCC) Foraminal stenosis of lumbar region P rocedures EMG PROCEDURE CO NDL EMG 2 XTR W/WO RELATED PARASPINAL AREAS Encounter Details Care Team Description Date Type Department Mable Breaux MD [address] [facility] [place] [address] [phone] Lumbar polyradiculopathy (Primary Dx); DDD (degenerative disc disease), lumbar 11/29/2020 Office Visit [facility] [address] [place] [address] Social History Date Tobacco Use Types Packs/Day [...] PM CDT Date Recorded COVID-19 Exposure Response 11/29/2020 12:57 PM CDT In the last month, have you been in contact with No / Unsure someone who was confirmed or suspected to have Coronavirus / COVID-19? documented as of this encounter Last Filed Vital Signs Reading Time Taken Comments Vital Sign 124/72 11/29/2020 1:25 PM CDT Blood Pressure 67 11/29/2020 1:25 PM CDT Pulse 36.6 C (97.8 F) 11/29/2020 1:25 PM CDT Temperature 16 11/29/2020 1:25 PM CDT Respiratory Rate 98% 11/29/2020 1:25 PM CDT Oxygen Saturation - - Inhaled Oxygen Concentration - - Weight 198.1 cm (6' 6") 11/29/2020 1:25 PM CDT Height - - Body Mass Index documented in this encounter [...] impairment: No documented as of this encounter Procedure Notes * Mable Breaux MD - 11/29/2020 1:30 PM CDT Associated Order(s): EMG PROCEDURE Procedure(s): CO NDL EMG 1 XTR W/WO RELATED PARASPINAL AREAS; CO NERVE CONDUCTIO N STUDIES 3-4 STUDIES Pre-Procedure Diagnose(s): DDD (degenerative disc disease), lumbar; Lumbar radic ular pain; Chronic midline low back pain with sciatica, sciatica laterality unsp ecified; Tobacco use disorder; BMI 45.0-49.9, adult (HCC); Foraminal stenosis of lumbar region Post-Procedure Diagnose(s): Lumbar polyradiculopathy Electrodiagnostic Laboratory Report Impression: ABNORMAL 1. There is electrodiagnostic evidence of acute on chronic right L4-S1 polyradic ulopathy. 2. There is no evidence of a right tibial or fibular mononeuropathy. 3. There is no evidence of peripheral polyneuropathy. Clinical Correlation: Follow-up with referring physician. Given the progression of the radiculopathy since last EMG/NCS dated 08/22/2019, repeat imaging may be warranted. Thank you for allowing me to perform electrodiagnostic testing on your patients. A full EMG/NCS report will be scanned into [employer], including waveforms. If y ou have any further questions or comments, please do not hesitate to call. Mable Breaux MD Diplomate, [place] [employer] and Rehabilitation Diplomate, [place] [employer] of Neuromuscular and Electrodiagnostic Medicine documented in this encounter Plan of Treatment Not on filedocumented as of this encounter Procedures Comments Procedure Name Priority Date/Time Associated Diag nosis CO NERVE CONDUCTION Routine 11/29/2020 DDD (degen erative disc STUDIES 3-4 STUDIES 1:30 PM CDT disease), lumbar Lumbar radicular pain Chronic midline low back pain with sciatica, sciatica laterality unspecified Tobacco use disorder BMI 45.0-49.9, adult (HCC) Foraminal stenosis of lumbar region CO NDL EMG 1 XTR W/WO Routine 11/29/2020 DDD (deg enerative disc RELATED PARASPINAL AREAS 1:30 PM CDT disease), ryan mbar Lumbar radicular pain Chronic midline low back pain with sciatica, sciatica laterality unspecified Tobacco use disorder BMI 45.0-49.9, adult (HCC) Foraminal stenosis of lumbar region documented in this encounter Results * EMG PROCEDURE (11/29/2020 1:30 PM CDT) [...] olyneuropathy. Clinical Correlation: Follow-up with referring physician. G iven the progression of the radiculopathy since last EMG/NCS dated 08/22/2019, repeat imaging may be warranted. Thank you for allowing me to perform el ectrodiagnostic testing on your patients. A full EMG/NCS report will be scanned into O2/EPIC, including waveforms. If you have any further questions or comments, please do not hesitate to call. Mable Breaux MD Diplomate, [place] [employer] of Physical M edicine and Rehabilitation Diplomate, [place] Association of Neur omuscular and Electrodiagnostic Medicine [...] hesitate to call. Mable Breaux MD Diplomate, [place] [employer] and [employer] Diplomate, [place] [employer] Neuromuscular and Electrodiagnostic Medicine Performing Organization Address City/State/ZIP Code P joés Number OTHER OUTSIDE LAB documented in this encounter Visit Diagnoses Diagnosis Lumbar polyradiculopathy - Primary Neuralgia, neuritis, and radiculitis, u nspecified DDD (degenerative disc disease), lumbar Degeneration of lumbar or lumbosacral i ntervertebral disc documented in this encounter Additional Health Concerns Assessment Noted Time A fall risk assessment has been completed for the pat ient 11/15/2020 10:16 AM CDT documented as of this encounter
--- OUTSIDE RECORDS SUMMARY | 2021-01-12 18:33 | XMS REPORT | Encounter Summary ---
Author Author [facility] Organization [facility] Address Unknown Phone Unavailable Care Team Providers Care Time Clock Inspector Name Role Phone Felicitas Prado Unavailable [phone] Madeline Richmond RN Unavailable Unavailable Larwence Jorge MD Unavailable Jonathan Saldaña MD Unavailable Unavailable Rogelio Joiner PA-C PCP Encounter Details Care Team Description Date Type Department 11/15/2020 Travel Social History Date Tobacco Use Types Packs/Day [...] PM CDT Date Recorded COVID-19 Exposure Response 11/15/2020 9:29 AM CDT In the last month, have you [...] impairment: No documented as of this encounter Plan of Treatment Not on filedocumented as of this encounter Visit Diagnoses Not on filedocumented in this encounter Additional Health Concerns Assessment Noted Time A fall risk assessment has been completed for the pat ient 11/15/2020 10:16 AM CDT documented as of this encounter
--- OUTSIDE RECORDS SUMMARY | 2021-01-12 18:33 | XMS REPORT | Encounter Summary ---
Author Author [facility] Organization [facility] Address Unknown Phone Unavailable Care Team Providers Care Realtime Captioner Name Role Phone Felicitas Prado Unavailable Madeline Richmond RN Unavailable Unavailable Lawrence Jorge MD Unavailable Jonathan Saldaña MD Unavailable Unavailable Rogelio Joiner PA-C PCP Encounter Details Care Team Description Date Type Department 11/29/2020 Travel Social History Date Tobacco Use Types [...]
--- OUTSIDE RECORDS SUMMARY | 2021-01-12 18:33 | XMS REPORT | Encounter Summary ---
Author Author [facility] Organization [facility] Address Unknown Phone Unavailable Care Team Providers Care Youth Coordinator Name Role Phone Felicitas Prado Unavailable [phone] Madeline Richmond RN Unavailable Unavailable Lawrence Jorge MD Unavailable Jonathan Saldaña MD Unavailable Unavailable Rogelio Joiner PA-C PCP Reason for Referral * Pain Authorization (Routine) Referred By Contact Referred To Contact Status Reason Specialty Diagnoses / Procedures Edna Santacruz APRN-NP [address] [place] [address] [facility] [address] [place] [address] Authorized Anesthesia Pain Diagnoses Lumbar radiculopathy P rocedures K[facility] AMB SPINE INJECT SNRB/TFESI LUMBAR/SACRAL Electronically signed by Edna ROBERTS at Reason for Visit * Reason Comments Procedure * Pain Authorization (Routine) Referred By Contact Referred To Contact Status Reason Specialty Diagnoses / Procedures Edna Santacruz APRN-NP [address] [place] [address] [facility] [address] [place] [address] Authorized Anesthesia Pain Diagnoses Lumbar radiculopathy P rocedures K[facility] AMB SPINE INJECT SNRB/TFESI LUMBAR/SACRAL Encounter Details Care Team Description [place] [address] [place], [place] [address] 12/13/2020 Hospital Pre/Post-Operative Care: Encounter [facility] [place] [address] [place] [id number] Social History Date Tobacco Use Types Packs/Day [...] (97.9 F) 12/13/2020 12:15 PM CDT Temperature - - Respiratory Rate 100% 12/13/2020 1:45 PM CDT Oxygen Saturation - - Inhaled Oxygen Concentration 193.2 kg (426 lb) 12/13/2020 12:15 PM CDT Weight 198.1 cm (6' 6") 12/13/2020 12:15 PM CDT Height 49.23 12/13/2020 12:15 PM CDT Body Mass Index documented in this [...] impairment: No documented as of this encounter Discharge Instructions * Instructions* Madie Ferguson RN - 12/13/2020 12:30 PM CDT GENERAL POST PROCEDURE INSTRUCTIONS Physician: Procedure Completed Today: o Joint Injection (hip, knee, shoulder) o Cervical Epidural Steroid Injection o Cervical Transforaminal Steroid Injection o Trigger Point Injection o Caudal Epidural Steroid Injection o Pudendal Nerve Block o Other o Thoracic Epidural Steroid Injection o Lumbar Epidural Steroid Injection o Lumbar Transforaminal Steroid Injection o Facet Joint Injection o Celiac Nerve Block o Sacrococcygeal o Sacroiliac Joint Injection Important information following your procedure today: o You may drive today o If you had sedation, you may NOT drive today - Rest at home for the next 6 hours. You may then begin to resume your normal a ctivities. - DO NOT drive any vehicle, operate any power tools, drink alcohol, make any letty or decisions, or sign any legal documents for the next 12 hours. 1. Pain relief may not be immediate. It is possible you may even experience an i ncrease in pain during the first 24-48 hours followed by a gradual decrease of y our pain. 2. Though the procedure is generally safe, and complications are rare, we do ask that you be aware of any of the following: Any swelling, persistent redness, new bleeding or drainage from the site of the injection. You should not experience a severe headache. You should not run a fever over 101oF. New onset of sharp, severe back and or neck pain. New onset of upper or lower extremity numbness or weakness. New difficulty controlling bowel or bladder function after injection. New shortness of breath. If any of these occur, please call to report this occurrence to a nurse at . If you are calling after 4:00 p.m. or on weekends or holidays, shelby barrios call [phone] and ask to have the resident physician transmission tester for the venita valentin paged or go to your local emergency room. 3. You may experience soreness at the injection site. Ice can be applied at 20-m inute intervals for the first 24 hours. The following day you may alternate ice with heat if you are experiencing muscle tightness, otherwise continue with ice. Ice works best at decreasing pain. Avoid application of direct heat, hot showers or hot tubs today. 4. Avoid strenuous activity today. You many resume your regular activities and e xercise tomorrow. 5. Patients with diabetes may see an elevation in blood sugars for 7-10 days aft er the injection. It is important to pay close attention to your diet, check you r blood sugars daily and report extreme elevations to the physician that manages your diabetes. 6. Patients taking daily blood thinners can resume their regular dose this marcelino jett. 7. It is important that you take all medications ordered by your pain physician. Taking medications as ordered is an important part of your pain care plan. If y ou cannot continue the medication plan, please notify the physician. Possible side effects to steroids that may occur: Flushing or redness of the face Irritability Fluid retention Change in women's menses Minor headache If you are unable to keep your upcoming appointment, please notify the [facility] radiology scheduler at [phone] at least 24 hours in advance. If you have question s for the surgery center, call [facility] at . documented in this encounter Medications at Time of Discharge [...] or Self Care documented in this encounter Progress Notes * Law Johnson MD - 12/13/2020 12:30 PM CDT SPINE CENTER INTERVENTIONAL PAIN PROCEDURE HISTORY AND PHYSICAL No chief complaint on file. HISTORY OF PRESENT ILLNESS: Kevin Grant is a 50 y.o. year old male who presents for injection. Denies fevers, chills, or recent hospitalizations. Patient denies currently taking blood thinning medications. Medical History: Diagnosis Date Anxiety 1994 Cardiomyopathy (HCC) Deafness left ear Degenerative disc disease, cervical Degenerative disc disease, lumbar Degenerative disc disease, thoracic Depression Joint pain 03/19/1998 Kidney stones 09/16/2013 Nerve injury Obesity Urolithiasis Varicose veins Surgical History: Procedure Laterality Date CHOLECYSTECTOMY GASTRIC BYPASS ORIF HUMERUS DECOMPRESSION left arm URETEROSCOPY family history includes Bleeding Disorders in his mother; Heart problem in his f ather and mother; Osteoporosis in his mother. Social History Socioeconomic History Marital status: Spouse name: Not on file Number of children: Not on file Years of education: Not on file Highest education level: Not on file Occupational History Not on file Tobacco Use Smoking status: Never Smoker Smokeless tobacco: Current User Types: Chew Tobacco comment: current use of smokless tobacco (chew) Substance and Sexual Activity Alcohol use: Yes Alcohol/week: 8.0 standard drinks Types: 8 Cans of beer per week Drug use: No Sexual activity: Yes Partners: Female control/protection: I.U.D. Other Topics Concern Not on file Social History Narrative Not on file Allergies Allergen Reactions Carvedilol SEE COMMENTS Vitals: 12/13/20 1215 BP: 136/69 BP Source: Arm, Left Upper Pulse: 67 Temp: 36.6 C (97.9 F) SpO2: 97% Weight: (!) 193.2 kg (426 lb) Height: 198.1 cm (78") REVIEW OF SYSTEMS: 10 point ROS obtained and negative except for back apin PHYSICAL EXAM: General: 50 y.o. male appears stated age, in no acute distress HEENT: Normocephalic, atraumatic Neck: No thyroidmegaly Cardiovascular: Well perfused Pulmonary: Unlabored respirations Extremities: No cyanosis, clubbing, or edema Skin: No lesions seen on exposed skin Psychiatric: Appropriate mood and affect Musculoskeletal: No atrophy. Neurologic: Antigravity strength in all extremities. CN II -XII grossly intact. Alert and oriented x 3. IMPRESSION: 1. Lumbar radiculopathy PLAN: Right L3 TFESI documented in this encounter Procedure Notes * Law Johnson MD - 12/13/2020 12:30 PM CDT Associated Order(s): Selective Nerve Rootblock/Transforaminal Lumbar/Sacral Pre-Procedure Diagnose(s): Lumbar radiculopathy Post-Procedure Diagnose(s): Lumbar radiculopathy Attending Surgeon: Law Johnson MD Anesthesia: Local Pre-Procedure Diagnosis: 1. Lumbar radiculopathy Post-Procedure Diagnosis: 1. Lumbar radiculopathy Selective Nerve Rootblock/Transforaminal Lumbar/Sacral Procedure: transforaminal epidural Laterality: right on 12/13/2020 12:03 PM Location: lumbar - L4-5 Consent: Consent obtained: verbal and written Consent given by: patient Risks discussed: allergic reaction, bleeding, bruising, infection, nerve damage, no change or worsening in pain and reaction to medication Discussed with patient the purpose of the treatment/procedure, other ways of ant ating my condition, including no treatment/ procedure and the risks and benefits of the alternatives. Patient has decided to proceed with treatment/procedure. Perley Protocol: Relevant documents: relevant documents present and verified Test results: test results available and properly labeled Imaging studies: imaging studies available Required items: required blood products, implants, devices, and special equipmen t available Site marked: the operative site was marked Patient identity confirmed: Patient identify confirmed verbally with patient. Time out: Immediately prior to procedure a "time out" was called to verify the c orrect patient, procedure, equipment, computer support technician and site/side marked as requ ired Procedures Details: Indications: pain and diagnostic evaluation Prep: chlorhexidine Patient position: prone Estimated Blood Loss: minimal Specimens: none Number of Joints: 1 Guidance: fluoroscopy Contrast: Procedure confirmed with contrast under live fluoroscopy. Needle and Epidural Catheter: quincke Needle size: 25 G Injection procedure: Incremental injection Patient tolerance: Patient tolerated the procedure well with no immediate compli cations. Pressure was applied, and hemostasis was accomplished. Comments: DESCRIPTION OF PROCEDURE: The procedure risks and benefits were expla ined to the patient. Informed consent was obtained. The patient was placed in the prone position on the fluoroscopy table with a pillow under the abdomen to h elp reduce lumbar lordosis. Blood pressure cuff and oxygen saturation monitor w ere attached and the patient was monitored throughout the entire procedure. Th e L3 vertebral body was identified with the use of fluoroscopy in the AP view; t he C-arm was obliqued to obtain a Bowers view. The right L3 pedicle was visu alized. The skin was prepped using Chlorhexadine and draped in aseptic fashion. The C-arm was rotated slightly obliquely towards the left side to visualize the area just below the foramen. Skin and subcutaneous tissue were anesthetized u sing 3 mL of 1 percent lidocaine with a 27-gauge, 1-1/2 inch needle. Next, a 4. 69-inch, 25-gauge spinal needle was slowly advanced to the 6 o'clock position to the right of the L3 pedicle just cephalad to the superior articular process. T he latter part of the needle advancement was performed with the C-arm in the lat eral view. When the needle tip was visualized to be in the right L3 neural fora men, the C-arm was changed back to AP view. Then, 0.6 mL of contrast dye was in jected. There was spread of dye revealing right L4 nerve root. After negative aspiration, a 2 mL solution containing 7.5 mg of dexamethasone and 0.5 mL of 1 p ercent lidocaine was injected in increments. The stylet was reinserted and then removed. After the procedure, the patient's blood pressure, heart rate, oxygen s aturation, and VAS pain score were recorded in the chart. There were no complications. The patient tolerated the procedure well and was b rought to the room for observation in stable condition and discharged with writt en discharge instructions. PLAN OF CARE: The patient is to follow up in the interventional spine clinic in 3 weeks. The patient was advised to contact the interventional spine center for any of th e following: Fever, chills, or night sweats. New onset severe sharp pain. Any new upper or lower extremity weakness or numbness. Any questions regarding the procedure. If unable to contact the interventional spine center, the patient was instructed to go to the local emergency room. Estimated blood loss: none or minimal Specimens: none Patient tolerated the procedure well with no immediate complications. Pressure w as applied, and hemostasis was accomplished. documented in this encounter Miscellaneous Notes * Addendum Note - Miri Fernandez RN - 12/13/2020 12:30 PM CDT Encounter addended by: Miri Fernandez RN on: 12/14/2020 2:36 PM Actions taken: Contacts section saved, Flowsheet accepted documented in this encounter Plan of Treatment Not on filedocumented as of this encounter Procedures Comments Procedure Name Priority Date/Time Associated Diag nosis FL NJX AA&/STRD TFRML EPI Routine 12/13/2020 Lumb ar radiculopathy LUMBAR/SACRAL 1 LEVEL 12:03 PM CDT documented in this encounter Results * Selective Nerve Rootblock/Transforaminal [...] the risks and benefits of the alternatives. Lateshae nt has decided to proceed with treatment/procedure. Perley Protocol: Relevant documents: relevant documents present and verified Test results: test results available an d properly labeled Imaging studies: imaging studies availa ble Required items: required blood products , implants, devices, and special equipment available Site marked: the operative site was [facility] Patient identity confirmed: Patient tushar ntify confirmed verbally with patient. Time out: Immediately prior to procedur e a "time out" was called to verify the correct patient, procedure, equipme nt, computer support technician and site/side marked as required [...] the chart. There were no complications. The latesha ent tolerated the procedure well and was [...] this encounter Visit Diagnoses Diagnosis Lumbar radiculopathy Thoracic or lumbosacral neuritis or rad iculitis, unspecified documented in this encounter Administered Medications Action Date Dose Rate Site Medication Order MAR Action 12/13/2020 1:33 PM CDT 15 mg dexamethasone PF (DECADRON) injection 15 Given mg 15 mg, SEE ADMIN INSTRUCTIONS, ONCE, 1 dose, On Sun12/13/20 at 1330, Preservative Free Route: Epidural 12/13/2020 1:34 PM CDT 2 mL iohexoL (OMNIPAQUE-300) 300 mg/mL Given injection 2 mL 2 mL, SEE ADMIN INSTRUCTIONS, ONCE, 1 dose, On Sun12/13/20 at 1330, Route: Epidural NOTE: This is a HIGH ALERT Medication. 12/13/2020 1:34 PM CDT 2 mL lidocaine PF 1% (10 mg/mL) injection 2 Given mL 2 mL, Injection, ONCE, 1 dose, On Sun12/13/20 at 1330 documented in this encounter Additional Health Concerns Assessment Noted Time A fall risk assessment has been completed for the pat ient 11/15/2020 10:16 AM CDT documented as of this encounter
--- OUTSIDE RECORDS SUMMARY | 2021-01-12 18:33 | XMS REPORT | Encounter Summary ---
Author Author [facility] Organization [facility] Address Unknown Phone Unavailable Care Team Providers Care Residential Treatment Staff Name Role Phone Felicitas Prado Unavailable [phone] Madeline Richmond RN Unavailable Unavailable Lawrence Jorge MD Unavailable Jonathan Saldaña MD Unavailable Unavailable Rogelio Joiner PA-C PCP Encounter Details Care Team Description Date Type Department 01/03/2021 Travel Social History Date Tobacco Use Types [...]
--- OUTSIDE RECORDS SUMMARY | 2021-01-12 18:33 | XMS REPORT | Encounter Summary ---
Author Author [facility] Organization [facility] Address Unknown Phone Unavailable Care Team Providers Care Percussion Instructor Name Role Phone Felicitas Prado Unavailable [phone] Madeline Richmond RN Unavailable Unavailable Lawrence Jorge MD Unavailable Jonathan Saldaña MD Unavailable Unavailable Rogelio Joiner PA-C PCP Encounter Details Care Team Description Date Type Department 12/13/2020 Travel Social History Date Tobacco Use Types [...]
--- OUTSIDE RECORDS SUMMARY | 2021-01-12 18:33 | XMS REPORT | Encounter Summary ---
Author Author [facility] Organization [facility] Address Unknown Phone Unavailable Care Team Providers Care Curriculum Development Coordinator Name Role Phone Felicitas Prado Unavailable [phone] Madeline Richmond RN Unavailable Unavailable Lawrecne Jorge MD Unavailable Jonathan Saldaña MD Unavailable Unavailable Rogelio JonierC PCP Reason for Referral * Pain Authorization (Routine) Referred By Contact Referred To Contact Status Reason Specialty Diagnoses / Procedures Edna Santacruz APRN-NP [address] [place] [address] New Request Diagnoses Lumbar radiculopathy P rocedures [facility] AMB SPINE INJECT SNRB/TFESI LUMBAR/SACRAL Electronically signed by Edna ROBERTS at Reason for Visit * Reason Comments Follow Up fuv after injection 12/13/20 -Right L3 TFESI, it was helpful Encounter Details Care Team Description Date Type Department Edna Santacruz APRN-NP [address] [place], [place] [id number] S/P epidural steroid injection (Primary Dx); Lumbar radiculopathy; Medication management 01/03/2021 Office Visit [facility] Tele[facility] Med: [facility]: [id number] [place] [address] Social History Date Tobacco Use Types Packs/Day [...] Signs Reading Time Taken Comments Vital Sign - - Blood Pressure - - Pulse - - Temperature - - Respiratory Rate - - Oxygen Saturation - - Inhaled Oxygen Concentration 194.6 kg (429 lb) 01/03/2021 2:43 PM CDT Weight 198.1 cm (6' 6") 01/03/2021 2:43 PM CDT Height 49.58 01/03/2021 2:43 PM CDT Body Mass Index documented in [...] Date End Date Prescription Sig Dispensed Refills 01/03/2021 HYDROcodone/acetaminophen Take one 30 tablet 0 (NORCO) 10/325 mg tablet tablet by mouth every 12 hours as needed for Pain documented in this encounter Progress Notes * Edna Santacruz APRN-DAPHNIE - 01/03/2021 2:40 PM CDT Obtained patient's verbal consent to treat them and their agreement to LARRY contreras policy and NPP via this telehealth visit during the [facility] CLINIC NOTE SUBJECTIVE: Kevin Grant is a 50 y.o.-year-old male with history of cardiomyopa thy and L2-L3 disc extrusion who presents for follow-up after right L3 transfora flora injection on 12/13/2020. Patient reports significant relief with the inject ion. Patient reports at least 75% reduction in pain. Overall, he is happy with his current level of pain. He is interested in having this repeated. Pain has no t recurred. He continues to have pain in the right leg. 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 Patient states being on his feet for several hours of the day has increased his pain in the legs. Patient also reports falling several weeks ago and notic ed increasing pain on the left low back and left leg. Patient states he has not previously had any symptoms on the left-hand side. Patient continues to take h ydrocodone on an as-needed basis. Patient states some days he does not need to take hydrocodone. He denies any adverse effects from the medications. He cristian nues to have functional benefits while taking this medication. He recently had an EMG of bilateral lower extremities completed by Dr. Breaux. Pain is not a t preprocedure level. VAS pain score is rated a 7/10. He has been continuing wit h home exercise program. He able to complete all normal daily activities and fe els as though his pain is now manageable. Denies any loss of control of bowel o r bladder. Last MRI of lumbar spine completed in February 2020. Review of Systems [...] Take one tablet by mout h every 12 hours as needed for Pain, Disp: 30 tablet, Rfl: 0 HYDROcodone/acetaminophen (NORCO) 10/325 mg tablet, Take one tablet by mout h every 6 hours as needed for Pain, Disp: 45 tablet, Rfl: 0 lisinopriL (ZESTRIL) 10 mg tablet, Take by mouth daily., Disp: , Rfl: pantoprazole DR (PROTONIX) 40 mg tablet, Take 40 mg by mouth daily., Disp: , Rfl: pregabalin (LYRICA) 75 mg capsule, Take 150 mg by mouth twice daily., Disp: , Rfl: tiZANidine (ZANAFLEX) 4 mg [...] Reactions Carvedilol SEE COMMENTS Physical Exam Vitals: 01/03/21 1443 Weight: (!) 194.6 kg (429 lb) Height: 198.1 cm (78") PainSc: Seven Pain Score: Seven Body mass index is [...] Alert and oriented x 3. IMPRESSION: 1. S/P epidural steroid injection 2. Lumbar radiculopathy 3. Medication management PLAN: 1. Lifestyle modifications. Recommend activity as tolerated. Avoid provocativ e maneuvers. Keep spine in neutral position. 2. Medications. Patient provided prescription refill for 1 month of hydrocodon e 30 tabs. Patient will send request monthly from pharmacy when refills are nee ded. Not to exceed 90 tablets in 3 months. Discussed with patient avoid taking this medication scheduled or chronically to avoid opioid-induced hyper analgesi a. Medication usage and safety reviewed. 3. Therapy. Continue with home exercises. 4. Imaging. None indicated at this time. 5. Interventions. Recommend repeating right L3 transforaminal epidural steroid injection in March. If patient continues to have symptoms in the left, he wi ll contact us prior to injection and may consider Leisy versus bilateral transfo raminal. Risks of the procedure were discussed including pain, bleeding, infect ion, and damage to nearby structures. Patient has elected to proceed with injec tion at this time. 6. Follow-up. Patient to follow-up in 3 months for medication check as well as repeat injection in March. Todays visit took place via [id number] encounter utilizing Zoom application. T otal time 30 minutes. Estimated counseling time 20 minutes. Counseled Mr. Irlanda antoine regarding medications and repeat injections. documented in this encounter Plan of Treatment Order Schedule Name Type Priority Associated Diag noses 2 Occurrences starting 01/03/2021 until 01/03/2022 [facility] SPINE INJECT Procedures Routine Lumbar rad iculopathy SNRB/TFESI LUMBAR/SACRAL documented as of this encounter Visit Diagnoses Diagnosis S/P epidural steroid injection - Primar y Lumbar radiculopathy Thoracic or lumbosacral neuritis or rad iculitis, unspecified Medication management Encounter for long-term (current) use o f other medications documented in this encounter Discontinued Medications Start Date End Date Medication Sig Discontinue Reason 12/14/2020 01/03/2021 HYDROcodone/acetaminophen Take one (NORCO) 10/325 mg tablet tablet by mouth every 6 hours as needed for Pain 01/11/2021 01/03/2021 HYDROcodone/acetaminophen Take one (NORCO) 10/325 mg tablet tablet by mouth every 6 hours as needed for Pain documented as of this encounter Additional Health Concerns Assessment Noted Time A fall risk assessment has been completed for the pat ient 11/15/2020 10:16 AM CDT documented as of this encounter
--- OUTSIDE RECORDS SUMMARY | 2021-01-12 18:33 | XMS REPORT | Encounter Summary ---
Author Author [facility] Organization [facility] Address Unknown Phone Unavailable Care Team Providers Care Gasoline Finisher Name Role Phone Felicitas Prado APRN-FLEET DISPATCH MANAGER Unavailable [phone] Madeline Richmond RN Unavailable Unavailable Lawrence Jorge MD Unavailable Jonathan Saldaña MD Unavailable Unavailable Rogelio Joiner PA-C PCP Reason for Visit * Reason Comments Medication Refill Encounter Details Care Team Description Date Type Department Edna Santacruz, WELLHEAD PUMPER-FLEET DISPATCH MANAGER [address] [place] [address] 01/03/2021 Refill Comprehensive Spine Rehab Med: [facility]: [id number] [place] [address] Social History Date Tobacco Use [...] impairment: No documented as of this encounter Miscellaneous Notes * Telephone Encounter - Sammie Mesa RN - 01/03/2021 2:49 PM CDT Last O/V: 01/03/2021 F/U Visit: None Routing to Provider for Review documented in this encounter Plan of Treatment Not on filedocumented as of this encounter Visit Diagnoses Not on filedocumented in this encounter Additional Health Concerns Assessment Noted Time A fall risk assessment has been completed for the pat ient 11/15/2020 10:16 AM CDT documented as of this encounter
--- NOTE | 2021-01-12 19:01 | ED Lower Extremity ---
General Chief Complaint: Lower Extremity Stated Complaint: R KNEE PAIN Nursing Triage Note: AMB TO ED WITH CRUTCHES REPORTS WAS GETTING OUT OF HIS CAR THIS PM. AND TWISTED HIS R KNEE. UNABLE TO PUT ANY WT ON IT. Source: patient Exam Limitations: no limitations History of Present Illness Date Seen by Provider: Jan 12, 2021 Time Seen by Provider: 18:46 Initial Comments Patient is a 50-year-old male who presents to the emergency department today with a chief complaint of acute knee pain. Patient states that he was getting out of his car and stepped in some mud and slipped/twisted, immediately had a popping sensation and pain in the lateral aspect of the right knee. Patient states since that time he has been unable to put any weight on i t. He denies any previous injuries to the right knee but has had previous scopes to the left knee by Dr. Briceno. Patient states he has a little bit of tingling in the right lower leg but also has a history of chronic back issues and is followed at by Ortho/neuro back surgeon. He is on hydrocodone once daily for chronic back p ain. Patient denies any right hip pain, denies any right foot or ankle pain. He did not actually fall to the ground. He complains of a mild amount of swelling to the right knee. No recent illnesses such as fevers, chills cough or congestion. Patient is Covid vaccinated. All other review of systems reviewed and negative except as stated. Onset: just prior to arrival Pain/Injury Location: right knee Method of Injury: twisted Modifying Factors: Improves With Immobilization; Worse With Movement Allergies and Home Medications Allergies Coded Allergies: carvedilol (Verified Allergy, Severe, LETHARGIC, 02/23/20) Patient Home Medication List Home Medication List Reviewed: Yes Amitriptyline HCl (Amitriptyline HCl) 50 Mg Tablet, 50 MG PO HS, (Reported) Entered as Reported by: MEG ALLEN on 02/23/20 1304 Cariprazine Hydrochloride (Vraylar) 3 Mg Capsule, 3 MG PO DAILY, (Reported) Entered as Reported by: MEG ALLEN on 02/23/20 1304 Celecoxib (Celebrex) 100 Mg Capsule, 100 MG PO BID PRN for PAIN-MODERATE (5-7), (Reported) Entered as Reported by: MEG ALLEN on 02/23/20 1304 Duloxetine HCl (Cymbalta) 60 Mg Capsule., 60 MG PO DAILY, (Reported) Entered as Reported by: MEG ALLEN on 02/23/20 1256 Furosemide (Furosemide) 40 Mg Tablet, 40 MG PO DAILY PRN for SWELLING, (Report ed) Entered as Reported by: MEG ALLEN on 02/23/20 1304 Gabapentin (Neurontin) 300 Mg Capsule, 300 MG PO TID, (Reported) Entered as Reported by: MEG ALLEN on 02/23/20 1304 Lisinopril (Lisinopril) 10 Mg Tablet, 10 MG PO DAILY, (Reported) Entered as Reported by: MEG ALLEN on 02/23/20 1304 Oxycodone HCl/Acetaminophen (Oxycodone-Acetaminophen 5-325) 1 Each Tablet, 1 EACH PO Q4H PRN for PAIN-SEVERE Prescribed by: JOSE STEPHENSON on 02/25/20 1141 Pantoprazole Sodium (Pantoprazole Sodium) 40 Mg Tablet., 40 MG PO DAILY, (Reported) Entered as Reported by: MEG ALLEN on 02/23/20 1304 Sildenafil Citrate (Sildenafil Citrate) 100 Mg Tablet, 100 MG PO PRN, (Reported) Entered as Reported by: MEG ALLEN on 02/23/20 1304 Tizanidine HCl (Zanaflex) 4 Mg Capsule, 2-4 MG PO Q6H PRN for MUSCLE SPASMS, (Reported) Entered as Reported by: MEG ALLEN on 02/23/20 1256 Review of Systems Constitutional: see HPI EENTM: no symptoms reported Respiratory: no symptoms reported Cardiovascular: no symptoms reported Gastrointestinal: no symptoms reported Musculoskeletal: joint pain (right knee) Skin: no symptoms reported All Other Systems Reviewed Negative Unless Noted: Yes Past Xaixylz-Rmrahc-Xbsbre Hx Patient Social History Substance use?: No Alcohol Use?: Yes Alcohol Frequency: Rarely Immunizations Up To Date First/Initial COVID19 Vaccinat: MAY 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: [employer] Seasonal Allergies Seasonal Allergies: No Past Medical History Respiratory: No Cardiac: Yes (LISINIPRIL FOR CARDIOMYOPATHY NOT HYPERTENSION) Cardiomyopathy Neurological: Yes Neuropathy Sexually Transmitted Disease: No HIV/AIDS: No Genitourinary: Yes Kidney Stones Gastrointestinal: Yes (PROTONIX FOR GASTRIC BYPASS) Musculoskeletal: Yes Arthritis, Chronic Back Pain Endocrine: No HEENT: Yes (GLASSES) Cancer: No Psychosocial: Yes Depression Integumentary: No Blood Disorders: No Adverse Reaction/Blood Tranf: No (N/A) Physical Exam Vital Signs Vital Signs - First Documented 01/12/21 18:41 Pulse 88 Resp 18 B/P (MAP) 145/85 (105) Pulse Ox 97 O2 Delivery Room Air Capillary Refill : Less Than 3 Seconds Height, Weight, BMI Height: '" Weight: lbs. oz. kg; 50.00 BMI Method: General Appearance: WD/WN, no apparent distress Neck: normal inspection Cardiovascular: regular rate, rhythm Respiratory: no respiratory distress, no accessory muscle use Hips: bilateral hip non-tender, bilateral hip normal inspection, bilateral hip normal range of motion, bilateral hip no evidence of injury Legs: bilateral leg non-tender, bilateral leg normal inspection, bilateral leg normal range of motion, bilateral leg no evidence of injury Knees: left knee non-tender, left knee normal inspection, left knee normal range of motion, left knee no evidence of injury; right knee swelling (Patient has mild amount of swelling over the anterior inferior and lateral portion of the right knee. Tenderness over the lateral joint line. I am unable to perform Lior's or Apley's test secondary to the patient's size and apprehension with exam. No significant effusion is noted. He has significant tenderness with lateral knee stress. He is really unable to flex the right knee secondary to pain but in limited flexion anterior drawer and posterior drawer tests are negative.) Ankles: bilateral ankle non-tender, bilateral ankle normal inspection, bilateral ankle normal range of motion Neurologic/Tendon: normal sensation, normal motor functions, normal tendon functions Neurologic/Psychiatric: alert, normal mood/affect, oriented x 3, other (Patient does endorse a little "tingling" to the right lower leg) Skin: normal color, warm/dry Progress/Results/Core Measures Results/Orders My Orders Orders - MARIELLE SOSA MD Hydrocodone/Apap 10/325 Tablet (Lortab 1 (01/12/21 19:00) Knee, Right, 3 Views (01/12/21 18:51) Vital Signs/I&O 01/12/21 18:41 Pulse 88 Resp 18 B/P (MAP) 145/85 (105) Pulse Ox 97 O2 Delivery Room Air Blood Pressure Mean: 105 Progress Progress Note : Time: 19:03 Progress Note We do not have a knee immobilizer of sufficient width to fit the patient. I will recommend ice and elevation as much as possible. He is already on anti- inflammatories (celebrex twice daily) and has a prescription for hydrocodone at home. Would recommend to him crutch walking with weight bearing as tolerated (no significant joint laxity or fractures noted that would mean he has to be completely non weight bearing). He has seen Dr Briceno in the past with opposite knee scoped - Dr Hameed is systems management consultant. WIll give the patient contact information for both offices. Patient verbalizes understanding, he is comfortable with plan of care, all questions are sought and answered. Departure Impression Primary Impression: Internal derangement of right knee Disposition: 01 HOME, SELF-CARE Condition: Stable Departure-Patient Inst. Decision time for Depature: 19:00 Referrals: [facility] (PCP) Primary Care Physician KAY DENTON (Family) Primary Care Physician FRANCIE HAMEED MD, MICHAEL P MD Patient Instructions: Ligament Injuries in the Knee (DC) Add. Discharge Instructions: Continue your Celebrex and hydrocodone at home for pain. You can take the hydrocodone every 6 hours as needed for pain - keep in mind this medication can be addictive, and will also make you sleepy. Do not drive or work while taking this medication. Please call Dr Briceno's office tomorrow for a follow up appointment. I have also given you contact information for Dr Hameed (our other Ortho doc), should you not be able to get in to Dr Briceno's office in a timely fashion. You can toe-touch weight bear on the affected leg as tolerated. Ice the knee to prevent further swelling and try and keep it a little elevated while you are at rest. Return to the ER for re-evaluation for any new, concerning or emergent complaints. Copy Copies To 1: PETER BRICENO MD, KATHRYN M MD Jan 12, 2021 19:01
--- NOTE | 2021-01-12 19:34 | Diagnostic Imaging Report ---
INDICATION: Knee pain. Knee popped while getting out of car. No comparison is available. FINDINGS: There is medial compartment joint space narrowing compatible with underlying osteoarthritic change. There are small ossific densities projecting over the joint space that may reflect loose intra-articular bodies. There may be trace knee joint effusion. There is no definable fracture or suspicious bone lesion. IMPRESSION: Joint space loss within the medial compartment of bilateral osteoarthritic joint space loss. There are possible ossific loose bodies within the knee joint with a trace effusion. There is no malalignment or evidence of an acute fracture. Dictated by: Dictated on workstation # [id number]
[2021-01-12 19:47] VITALS: BP 141/80
== END 2021-01-12 19:42 | disposition home or self-care (01) ==
LOC: EDUNIT# 18:27 → ER 18:29
DX: M23.91 Unspecified internal derangement of right knee (principal); F32.9 Major depressive disorder, single episode, unspecified; G89.29 Other chronic pain; M54.9 Dorsalgia, unspecified; Z79.891 Long term (current) use of opiate analgesic; Z79.899 Other long term (current) drug therapy
CPT/HCPCS: 73562

== ENCOUNTER 2021-01-31 05:39 | Outpatient (CLI) | payer OTHER, BC ==
[~2021-01-31] VITALS: Ht 197 cm; Wt 192.3 kg
[2021-01-31] MEDS ORDERED: PREG150C PO (10:27)
[2021-01-31] MEDS ORDERED: VILA40TA PO (10:27)
[2021-01-31] MEDS ORDERED: HYDR-3820 PO (10:27)
== END 2021-01-31 10:39 | disposition home or self-care (01) ==
LOC: PREOP 05:39
PROVIDERS: ATTEND Orthopaedic Surgery
DX: Z01.818 Encounter for other preprocedural examination (principal)

== ENCOUNTER 2021-02-02 09:44 | Day surgery (SDC) | payer OTHER, BC ==
--- NOTE | 2021-01-28 15:49 | HISTORY AND PHYSICAL ---
DATE OF SERVICE: 02/02/2021 ADMISSION HISTORY AND PHYSICAL DATE OF ADMISSION: This will be for outpatient surgery for right knee arthroscopy on 01/26/2021. HISTORY OF PRESENT ILLNESS: The patient is a 50-year-old gentleman with longstanding right knee pain. He reports over the last few months, he has had increasing pain and stiffness in his right knee. He had an acute injury a week ago where he stepped awkwardly and felt a pop in the right knee. He has marked increase in back pain and swelling. He has had to ambulate with a crutch following this injury. Due to functional impairment and failure to improve with conservative measures and progressive symptoms, the patient has elected to proceed with surgical intervention. REVIEW OF SYSTEMS: No chest pain, no shortness of breath, no dysuria. PAST MEDICAL HISTORY: Lumbar spine, depression, kidney stones, morbid obesity, cardiomyopathy, obstructive sleep apnea, chronic knee pain, varicose veins, neuropathy, hearing loss and ventral hernia. PAST SURGICAL HISTORY: ORIF left elbow, gastric bypass [place], kidney stone, cholecystectomy, left knee arthroscopy. FAMILY HISTORY: Significant for obesity, hypertension, congestive heart failure, Crohn's disease, rheumatoid arthritis, diabetes mellitus. PRIMARY CARE PROVIDER: [facility]. MEDICATIONS: Zanaflex, Lyrica, Viibryd, sildenafil, furosemide, Vraylar, pantoprazole, lisinopril, Celebrex. ALLERGIES: COREG. SOCIAL HISTORY: The patient drinks alcohol socially. Never used tobacco. RADIOGRAPHS: Reveal moderate to severe patellofemoral joint space narrowing. PHYSICAL EXAMINATION: GENERAL: The patient is well-developed, well-nourished, in no acute distress. HEENT: Normocephalic, atraumatic. Pupils are equal, round and reactive to light. Oropharynx is clear. NECK: Supple, no lymphadenopathy. LUNGS: Clear to auscultation bilaterally. HEART: Regular rate and rhythm. ABDOMEN: Soft, nontender, nondistended. EXTREMITIES: The right knee demonstrates a 2+ effusion. He has no warmth or erythema. He is able to straight leg raise. Range of motion of 0/0/100. He is tender along his medial and lateral joint lines and has pain medially with Lior's. Negative anterior and posterior drawer. No varus or valgus laxity noted. 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 PLAN: Right knee arthroscopy with partial meniscectomy and chondroplasty. The risks, benefits, options, ramifications and recovery have been discussed at length with the patient. He understands and wishes to proceed. Job ID: [id number] DocumentID: [id number] Dictated Date: 01/17/2021 11:02:23 Control Director Date: 01/17/2021 11:29:28 Dictated By: PETER GILLIS MD
[~2021-02-02] VITALS: Ht 197 cm; Wt 192.3 kg
[2021-02-02] VITALS (10 sets, daily range): BP systolic 105–152; BP diastolic 60–96
[~2021-02-02 09:44] MED LIST changes: +PREG150C PO; +VILA40TA PO; +oxyCODONE/APAP 5/325MG (PERCOCET 5) TABLET PO PRN
[2021-02-02] MEDS ORDERED: ceFAZolin 2 GM IV Premixed 50 ML IV ONE (10:00)
[2021-02-02] MEDS ORDERED: LACTATED RINGERS 1,000 ML IV PRN (10:00)
--- NOTE | 2021-02-02 10:44 | Progress Note-Pre Operative ---
Pre-Operative Progress Note H&P Reviewed The H&P was reviewed, patient examined and no changes noted. Date Seen by Provider: Feb 02, 2021 Time Seen by Provider: 10:43 Date H&P Reviewed: Feb 02, 2021 Time H&P Reviewed: 10:44 Pre-Operative Diagnosis: right knee medial meniscus tear and chondromalacia PETER GILLIS MD Feb 02, 2021 10:44
--- NOTE | 2021-02-02 10:45 | Progress Note-Post Operative ---
Post-Operative Progess Note Surgeon (s)/Pharmacist Critical Care (s) Surgeon PETER GILLIS MD Pharmacist Critical Care: Elio Shen Pre-Operative Diagnosis right knee medial meniscus tear and chondromalacia Post-Operative Diagnosis right knee laterall meniscus tear and chondromalacia of the lateral tibia plateau and trochlea and loose body Procedure & Operative Findings Date of Procedure 02/02/21 Procedure Performed/Findings right knee arthroscopic partial lateral menisctomy and chondroplsty of lateral tibia plateau and trochlea and loose body removal Anesthesia Type GETA Estimated Blood Loss Estimated blood loss (mL): minimal Specimens/Packing Specimens Removed none Packing: none PETER GILLIS MD Feb 02, 2021 10:45
[2021-02-02] MEDS ORDERED: ONDANSETRON 4 MG/2 ML (SDV) Z0FRAN ONE (11:06)
[2021-02-02] MEDS ORDERED: proPOfol 200 MG/20 ML (DIPRIVAN) VIAL IV ONE (11:06)
[2021-02-02] MEDS ORDERED: MIDAZOLAM 2 MG/2 ML (VERSED) VIAL ONE (11:06)
[2021-02-02] MEDS ORDERED: fentaNYL INJ 100 MCG/2 ML AMP ONE (11:06)
[2021-02-02] MEDS ORDERED: morphine PF (DURAMORPH) 10 MG/10 ML AMP ONE (11:07)
[2021-02-02] MEDS ORDERED: BUPIVACAINE 0.25% 30 ML (SENSORCAINE) VIAL ONE (11:07)
[2021-02-02] MEDS ORDERED: SEVOFLURANE (ULTANE) 15 ML INHAL SOLN ONE (12:09)
[2021-02-02] MEDS ORDERED: MEPERIDINE (DEMEROL) INJ 50 MG/ML IVP ONE (12:30)
[2021-02-02] MEDS ORDERED: morphine INJ 10 MG/ML 1ML (SYR OR VIAL) IVP ONE (12:30)
[2021-02-02] MEDS ORDERED: ONDANSETRON 4 MG/2 ML (SDV) Z0FRAN IVP PRN (12:30)
[2021-02-02] MEDS ORDERED: HYDROmorphone 2 MG/ML VIAL (DILAUDID) IV ONE (12:30)
--- NOTE | 2021-02-02 13:13 | Anesthesia-General Post-Op ---
General Patient Condition Mental Status/LOC: Same as Preop Cardiovascular: Satisfactory Nausea/Vomiting: Absent Respiratory: Satisfactory Pain: Controlled Complications: Absent Post Op Complications Complications None Follow Up Care/Instructions Patient Instructions None needed. Anesthesia/Patient Condition Patient Condition Patient is doing well, no complaints, stable vital signs, no apparent adverse anesthesia problems. No complications reported per nursing. JOEL ESPINOZA CRNA Feb 02, 2021 13:13
--- NOTE | 2021-02-02 14:27 | Physical Therapy Ortho Eval ---
PT Orthopedic Evaluation Type of Surgery Knee Scope Prior Level of Function Current Living Status: Spouse Locomotion (Upon Admit): Independent Established Durable Medical Eq: Crutches Subjective Subjective Patient currently reports pain at 5-6/10 in the right knee. Entry Into Home: Stairs With Railing Steps Into Home: 3 Steps Accessories: Railing Present Motor Control Motor Control: Motor Control WNL ROM ROM: WFL, except focal deficit Transfer SCALE: Activities may be completed with or without assistive devices. 3-Hykkzkxouu-mcyzihg completes the activity by him/herself with no assistance from a helper. 5-Set-up or Clean-up Assistance-helper sets up or cleans up; patient completes activity. [place] assists only prior to or following the activity. 4-Supervision or Touching Assistance-helper provides verbal cues and/or to uching/steadying and/or contact guard assistance as patient completes activity. Assistance may be provided throughout the activity or intermittently. 3-Partial/Moderate Assistance-helper does LESS THAN HALF the effort. [place] lifts, holds or supports trunk or limbs, but provides less than half the effort. 2-Substantial/Maximal Assistance-helper does MORE THAN HALF the effort. [place] lifts or holds trunk or limbs and provides more than half the effort. 6-Fyekvsvmk-yrjuqy does ALL the effort. Patient does none of the effort to complete the activity. Or, the assistance of 2 or more helpers is required for the patient to complete the activity. If activity was not attempted, code reason: 7-Patient Refused. 9-Not Applicable-not attempted and the patient did not perform the activity before the current illness, exacerbation or injury. 10-Not Attempted due to Environmental Limitations-(lack of equipment, weather restraints, etc.). 88-Not Attempted due to Medical Conditions or Safety Concerns. Gait Gait Assistive Device: Crutches Right Lower Extremity: Right Weight Bearing Status RLE: Weight Bearing/Tolerated Gait (QC): 5 Distance (QC): 3=413-60 ft Distance: 50 feet Gait Level of Assist: 5 Treatment Rendered Treatment: Gait Train Assessment/Goals Goal Time Frame: 1 Visit Understands HEP: Yes Plan Treatment Plan: Discharge Time Time In: 1406 Time Out: 1427 Total Billed Treatment Time: 21 Billed Treatment Time Visit, FRANCIE Baez PT Feb 02, 2021 14:27
--- NOTE | 2021-02-02 17:52 | OPERATIVE REPORT ---
DATE OF SERVICE: 02/02/2021 PREOPERATIVE DIAGNOSIS: Right knee lateral meniscus tear. POSTOPERATIVE DIAGNOSES: 1. Right knee lateral meniscus tear. 2. Right knee loose body (1 x 1 cm in size). 3. 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 4. Right knee chondromalacia of the trochlea. PROCEDURES: 1. Right knee arthroscopic partial lateral meniscectomy. 2. Right knee arthroscopic loose body removal (1 x 1 cm in size). 3. Right knee arthroscopic chondroplasty of the lateral tibial plateau. 4. Right knee arthroscopic chondroplasty of the trochlea. SURGEON: Tomy Briceno MD DIRECTOR WORKFORCE MANAGEMENT: Elio Shen, who assisted throughout the procedure and closed the incisions. ANESTHESIA: General endotracheal by Jay Means CRNA. TOURNIQUET TIME: Not applicable. ESTIMATED BLOOD LOSS: Minimal. DRAINS: None. COMPLICATIONS: None. POSTOPERATIVE PLAN: Routine arthroscopy protocol. The patient was transferred to the recovery room awake and in stable condition. STATEMENT OF MEDICAL NECESSITY: The patient is a 50-year-old gentleman with complaints of right knee pain, catching, locking and swelling. He had tenderness along the lateral joint line, has pain laterally with Lior's. He tried rest, activity modifications, and anti-inflammatories without relief. Due to functional impairment and failure to improve with conservative measures, the patient elected to proceed with surgical intervention. Examination under anesthesia revealed range of motion of 0/0/130 with negative Brandan, negative anterior and posterior drawer. No varus valgus laxity, negative pivot shift. Arthroscopic findings, the patella demonstrated diffuse grade II chondral softening. The trochlea demonstrated grade II chondral flaps centrally in a 10 x 10 area. The medial and lateral gutters were clear. The ACL and PCL were intact. The medial compartment demonstrated no meniscal or chondral pathology. The lateral compartment demonstrated a 1 x 1 cm loose body posterolaterally. In addition, there was a radial tear of the posterior horn/body junction of the meniscus involving approximately 20% of the junction. The lateral tibial plateau demonstrated grade IV chondral flap centrally in an 8 x 8 area. PROCEDURE IN DETAIL: After risks and benefits of procedure were discussed and questions were answered, an informed consent was signed and placed on the chart. The operative site was confirmed in the preoperative holding area initialed by the surgeon. The patient was then transferred to the operating room and after adequate levels of general endotracheal anesthetic were obtained, a timeout was called, confirming the operative site and examination under anesthesia was performed with above findings noted. The right lower extremity was prepped and draped in the usual sterile fashion. The knee joint was injected with 60 mL fluid and standard inferolateral portal was placed for the arthroscope under direct visualization and inferior medial portal was created, the menisci and cruciates were carefully probed with the above findings noted. The loose body was removed with a grasper. The unstable chondral flaps on the lateral tibial plateau were debrided with a shaver back to a stable edge and lateral meniscus tear was debrided with a biter and a shaver back to a stable edge. Scope was then redirected into the patellofemoral joint space where the unstable chondral flaps on the trochlea were debrided with a shaver back to a stable edge. The knee was copiously irrigated. Portal sites were closed with 4-0 nylon in septic fashion. Knee was injected with Duramorph. The port sites were infiltrated with plain Marcaine. A soft dressing was applied. The patient was transferred to the recovery room awake and in stable condition. Job ID: [id number] DocumentID: [id number] Dictated Date: 02/02/2021 12:19:10 Bacon Skinner Date: 02/02/2021 17:50:56 Dictated By: TOMY BRICENO MD
--- OUTSIDE RECORDS SUMMARY | 2021-02-07 09:57 | XMS REPORT | Encounter Summary ---
Author Author [facility] Organization [facility] Address Unknown Phone Unavailable Care Team Providers Care Landscape Crew Leader Name Role Phone Felicitas Prado APRN-COMPANION CAREGIVER Unavailable Madeline Richmond RN Unavailable Unavailable Lawrence Jorge MD Unavailable Jonathan Saldaña MD Unavailable Unavailable Rogelio Joiner PA-C PCP Reason for Visit * Reason Comments Medication Refill Encounter Details Care Team Description Date Type Department Edna Santacruz, CANE PACKER-COMPANION CAREGIVER [address] [place] [address] 02/04/2021 Refill Comprehensive Spine Rehab Med: [facility]: 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 Last O/V: 01/03/2021 F/U Visit: 03/07/2021 Routing to Provider for Review MOBILE ASSEMBLER documented in this encounter Plan of Treatment Not on filedocumented as of this encounter Visit Diagnoses Not on filedocumented in this encounter Additional Health Concerns Noted Time Assessment 11/15/2020 10:16 AM CDT A fall risk assessment has been complet ed for the patient documented as of this encounter Care Teams Start Date End Date Landscape Crew Leader Relationship Specialty 02/04/20 Rogelio Joiner PA-C PCP - General Physician Longitudinal Float Operator 09/08/13 Felicitas Prado, CANE PACKER-COMPANION CAREGIVER [address] [place] [address] [place] [address] 09/09/13 Madeline Richmond, ORLIN 09/09/13 Lawrence Jorge MD Urology [address] [facility] [address] [place] [address] 09/23/13 Jonathan Saldaña MD Urology LEFT [facility] 09/15/2016 documented as of this encounter
--- OUTSIDE RECORDS SUMMARY | 2021-02-07 09:57 | XMS REPORT | Clinical Summary ---
Author Author [facility] Organization [facility] Address Unknown Phone Unavailable Care Team Providers Care Lead Fire Protection Engineer Name Role Phone Felicitas Prado Unavailable [phone] Madeline Richmond RN Unavailable Unavailable Lawrence Jorge MD Unavailable Jonathan Saldaña MD Unavailable Unavailable Rogelio JoinerC PCP Source Comments Some departments are not documenting in the electronic medical record. If you d o not see the information that you expected, contact Release of Information in [facility] Information Management department at [phone] for further assistan ce in locating additional records.[facility] Allergies Comments Active Allergy Reactions Severity Noted [...] every 12 hours as needed for Pain Active Problems Problem Noted Date DDD (degenerative disc disease), lumbar 11/29/2020 Lumbar polyradiculopathy 11/29/2020 Nephrolithiasis 09/08/2013 Encounters Care Team Description Date Type Specialty Edna Santacruz APRN-NP 02/04/2021 Refill Rehabilitation [facility] Edna Santacruz APRN-NP S/P epidural steroid injection (Primary Dx); Lumbar radiculopathy; Medication management 01/03/2021 Office Visit Rehabilitation [facility] Telehealth 01/03/2021 Travel Edna Santacruz APRN-NP 01/03/2021 Refill Rehabilitation [facility] Law Johnson MD 12/13/2020 Hospital Radiology Encounter Law Johnson MD 12/13/2020 Hospital Anesthesia Pain Encounter 12/13/2020 Travel Mable Breaux MD Lumbar polyradiculopathy (Primary Dx); DDD (degenerative disc disease), lumbar 11/29/2020 Office Visit Rehabilitation [facility] 11/29/2020 Travel Edna Santacruz APRN-NP Lumbar radiculopathy (Primary Dx); Chronic right-sided low back pain without sciatica; Medication management; S/P epidural steroid injection 11/15/2020 Office Visit Rehabilitation [facility] 11/15/2020 Travel Edna Santacruz APRN-NP 11/09/2020 Refill Rehabilitation [facility] from Last 3 Months Immunizations Name Administration Dates Next Due COVID-19 (JEFF & 07/28/2020 JEFF/FADI) Recombinant Protein VACC, 0.5 mL (PF) Flu vaccine, inj 01/09/2019 unspecified (Historical) MMR Vaccine 03/25/2007 Surgical History Surgery Date Site/Laterality Comments ORIF HUMERUS left arm DECOMPRESSION GASTRIC BYPASS CHOLECYSTECTOMY URETEROSCOPY Medical History Medical History Date Comments Depression Deafness left ear Obesity Urolithiasis Anxiety 1995 Joint pain 03/19/1998 Nerve injury Varicose veins Degenerative disc disease, cervical Degenerative disc disease, lumbar Degenerative disc disease, thoracic Kidney stones 09/16/2013 Cardiomyopathy (HCC) Family History Medical History Relation Name Comments Heart problem Father Arthur Bleeding Disorders Mother Jian HX blood cl ots Heart problem Mother Jian Osteoporosis Mother Jian Relation Name Status Comments [...] Date Recorded Male 06/08/2019 3:37 PM CDT Last Filed Vital Signs Reading Time Taken [...] Done Comments HIV SCREENING 10/12/1986 DTAP/TDAP VACCINES ( - 10/12/1989 Tdap) HEPATITIS C SCREENING 10/12/1989 PHYSICAL (COMPREHENSIVE) 10/12/1989 EXAM COVID-19 VACCINE (2 - 09/22/2020 07/28/2020 Booster for Fadi series) INFLUENZA VACCINE 10/17/2020 01/09/2019 Procedures Comments Procedure Name Priority Date/Time Associated Diag nosis FLUORO GUIDANCE FOR SPINE Routine 12/13/2020 INJ RAD 1:36 PM CDT HI NJX AA&/STRD TFRML EPI Routine 12/13/2020 Lumb ar radiculopathy LUMBAR/SACRAL 1 LEVEL 12:03 PM CDT HI NERVE CONDUCTION Routine 11/29/2020 DDD (degen erative disc STUDIES 3-4 STUDIES 1:30 PM CDT disease), lumbar Lumbar radicular pain Chronic midline low back pain with sciatica, sciatica laterality unspecified Tobacco use disorder BMI 45.0-49.9, adult (HCC) Foraminal stenosis of lumbar region HI NDL EMG 1 XTR W/WO Routine 11/29/2020 DDD (deg enerative disc RELATED PARASPINAL AREAS 1:30 PM CDT disease), ryan mbar Lumbar radicular pain Chronic midline low back pain with sciatica, sciatica laterality unspecified Tobacco use disorder BMI 45.0-49.9, adult (HCC) Foraminal stenosis of lumbar region from Last 3 Months Results * FLUORO GUIDANCE FOR SPINE INJ RAD (12/13/2020 1:36 PM CDT) Modality Anatomical Region Laterality Radio Fluoroscopy Spine Specimen Narrative [facility] - 12/13/2020 2:13 PM CDT This order has been auto finalized and does not contain a result. Performing Organization Address City/State/ZIP Code P josé Number [facility] * HI NJX AA&/STRD TFRML EPI LUMBAR/SACRAL 1 LEVEL (12/13/2020 12:03 PM CDT) Narrative OTHER OUTSIDE LAB - 12/13/2020 12:03 PM CDT Law Johnson MD 12/13/2020 3:26 PM Selective Nerve Rootblock/Transforaminal Lumbar/Sacral Procedure: transforaminal epidural Laterality: right on 12/13/2020 12:03 PM Location: lumbar - L4-5 Consent: Consent obtained: verbal and written Consent given by: patient Risks discussed: allergic reaction, bleeding, bruising, infection, nerve damage, no change or worsening in pain and reaction to medication Discussed with patient the purpose of the treatment/procedure, other ways of treating my condition, including no treatment/ procedure and the risks and benefits of the alternatives. Patient has decided to proceed with treatment/procedure. [place] Protocol: Relevant documents: relevant documents present and verified Test results: test results available and properly labeled Imaging studies: imaging studies available Required items: required blood products, implants, devices, and special equipment available Site marked: the operative site was marked Patient identity confirmed: Patient identify confirmed verbally with patient. Time out: Immediately prior to procedure a "time out" was called to verify the correct patient, procedure, equipment, technical support coordinator and site/side marked as required Procedures Details: Indications: pain and diagnostic evaluation Prep: chlorhexidine Patient position: prone Estimated Blood Loss: minimal Specimens: none Number of Joints: 1 Guidance: fluoroscopy Contrast: Procedure confirmed with contrast under live fluoroscopy. Needle and Epidural Catheter: quincke Needle size: 25 G Injection procedure: Incremental injection Patient tolerance: Patient tolerated the procedure well with no immediate complications. Pressure was applied, and hemostasis was accomplished. Comments: DESCRIPTION OF PROCEDURE: The procedure risks and benefits were explained to the patient. Informed consent was obtained. The patient was placed in the prone position on the fluoroscopy table with a pillow under the abdomen to help reduce lumbar lordosis. Blood pressure cuff and oxygen saturation monitor were attached and the patient was monitored throughout the entire procedure. The L3 vertebral body was identified with the use of fluoroscopy in the AP view; the C-arm was obliqued to obtain a Bowers view. The right L3 pedicle was visualized. The skin was prepped using Chlorhexadine and draped in aseptic fashion. The C-arm was rotated slightly obliquely towards the left side to visualize the area just below the foramen. Skin and subcutaneous tissue were anesthetized using 3 mL of 1 percent lidocaine with a 27-gauge, 1-1/2 inch needle. Next, a 4.69-inch, 25-gauge spinal needle was slowly advanced to the 6 o'clock position to the right of the L3 pedicle just cephalad to the superior articular process. The latter part of the needle advancement was performed with the C-arm in the lateral view. When the needle tip was visualized to be in the right L3 neural foramen, the C-arm was changed back to AP view. Then, 0.6 mL of contrast dye was injected. There was spread of dye revealing right L4 nerve root. After negative aspiration, a 2 mL solution containing 7.5 mg of dexam ethasone and 0.5 mL of 1 percent lidocaine was injected in increments. The stylet was reinserted and then removed. After the procedure, the patient's blood pressure, heart rate, oxygen saturation, and VAS pain score were recorded in the chart. There were no complications. The patient tolerated the procedure well and was brought [...] P josé Number OTHER OUTSIDE LAB * HI NDL EMG 1 XTR W/WO RELATED PARASPINAL AREAS, HI NERVE CONDUCTION STUDIES 3- 4 STUDIES (11/29/2020 1:30 PM CDT) Narrative OTHER OUTSIDE LAB - 11/29/2020 1:30 PM CDT Mable Breaux MD 11/29/2020 2:08 PM Electrodiagnostic [...] full EMG/NCS report will be scanned into [employer], including waveforms. If you have any further questions or comments, please do not hesitate to call. Mable Breaux MD Diplomate, [place] [employer] and [employer] Diplomate, [place] [employer] Neuromuscular [employer] Electrodiagnostic [employer] Procedure Note Mable Breaux [...] full EMG/NCS report will be scanned into [employer], including waveforms. If you have any further questions or comments, please do not hesitate to call. Mable Breaux MD Diplomate, [place] [employer] and [employer] Diplomate, [place] [employer] Neuromuscular and Electrodiagnostic [employer] Performing Organization Address City/State/ZIP Code P josé Number OTHER OUTSIDE LAB from Last 3 Months Insurance Type Payer Benefit Subscriber ID Effective Phone Address Plan / Dates Group PPO BCBS [facility] [id number] 2020-2 [id number] [facility] [address] HMO [employer] [id number] 2019-P [phone] [address] [place] [id number] Advance Directives Patient Hook Up Driver Explanation Type Date Recorded Advance Directive/DPOA Date Inactivated Comments Code Status Date Activated 09/09/2013 5:23 PM Full Code 09/08/2013 10:26 PM Provider has discussed Code Status No, more discussi on w/Patient or Family? needed Care Teams Start Date End Date Lead Fire Protection Engineer Relationship Specialty 02/04/20 Rogelio Joiner PA-C PCP - General Physician Fish Drier 09/08/13 Felicitas Prado, LEAD FRONT DESK AGENT-GLASS INSTALLER TECHNICIAN [address] [facility] [address] [place], [place] [phone] 09/09/13 Madeline Richmond, RN 09/09/13 Lawrence Jorge MD Urology 1999 Replaced By [facility] [address] [place], [place] [phone] 09/23/13 Jonathan Saldaña MD Urology LEFT 09/15/2016
--- OUTSIDE RECORDS SUMMARY | 2021-02-07 09:57 | XMS REPORT | Encounter Summary ---
Author Author [facility] Organization [facility] Address Unknown Phone Unavailable Care Team Providers Care Aerospace Stress Engineer Name Role Phone Felicitas Prado APRN-STUDENT LIFE COORDINATOR Unavailable [phone] Madeline Richmond RN Unavailable Unavailable Lawrence Jorge MD Unavailable Jonathan Saldaña MD Unavailable Unavailable Rogelio Joiner PA-C PCP Reason for Visit * Reason Comments Medication Refill Encounter Details Care Team Description Date Type Department Edna Santacruz, CALL OUT CLERK-STUDENT LIFE COORDINATOR [address] [place] [address] 01/03/2021 Refill Comprehensive Spine Rehab Med: [facility]: [address] [place] [address] Social History Date Tobacco Use [...] encounter Care Teams Start Date End Date Aerospace Stress Engineer Relationship Specialty 02/04/20 Rogelio Joiner PA-C PCP - General Physician Methods Specialist 09/08/13 Felicitas Prado, CALL OUT CLERK-STUDENT LIFE COORDINATOR [address] [facility] [address] [place] [address] 09/09/13 Madeline Richmond, ORLIN 09/09/13 Lawrence Jorge MD Urology [address] [facility] [address] [id number] 09/23/13 Jonathan Saldaña MD Urology LEFT [facility] 09/15/2016 documented as of this encounter
== END 2021-02-02 14:19 ==
LOC: SDC 09:44
PROVIDERS: ATTEND Orthopaedic Surgery
DX: S83.281A Other tear of lateral meniscus, current injury, right knee, initial encounter (principal); M23.41 Loose body in knee, right knee; M94.261 Chondromalacia, right knee; G62.9 Polyneuropathy, unspecified; E66.01 Morbid (severe) obesity due to excess calories; G47.33 Obstructive sleep apnea (adult) (pediatric); I10 Essential (primary) hypertension; G89.29 Other chronic pain; M54.9 Dorsalgia, unspecified; F32.A Depression, unspecified; I42.9 Cardiomyopathy, unspecified; Z79.891 Long term (current) use of opiate analgesic; Z79.1 Long term (current) use of non-steroidal anti-inflammatories (NSAID); Z98.890 Other specified postprocedural states; Z79.899 Other long term (current) drug therapy; Z68.42 Body mass index [BMI] 45.0-49.9, adult
CPT/HCPCS: 87081

== ENCOUNTER 2022-03-01 05:29 | Outpatient (CLI) | payer OTHER, BC ==
[~2022-03-01] VITALS: Ht 198.1 cm; Wt 193.2 kg
[~2022-03-01 05:29] MED LIST changes: -oxyCODONE/APAP 5/325MG (PERCOCET 5) TABLET PO PRN
[2022-03-01] MEDS ORDERED: BREX2TAB PO (15:57)
== END 2022-03-01 16:07 ==
LOC: PREOP 05:29
PROVIDERS: ATTEND Orthopaedic Surgery
DX: Z01.818 Encounter for other preprocedural examination (principal); S83.241A Other tear of medial meniscus, current injury, right knee, initial encounter; M94.261 Chondromalacia, right knee; X58.XXXA Exposure to other specified factors, initial encounter

== ENCOUNTER 2022-03-08 07:57 | Day surgery (SDC) | payer BC, OTHER ==
--- NOTE | 2022-02-28 07:34 | HISTORY AND PHYSICAL ---
DATE OF SERVICE: 03/08/2022 This will be for outpatient surgery on 03/08/2022 for right knee arthroscopy. HISTORY OF PRESENT ILLNESS: A 51-year-old gentleman who had previously undergone right knee arthroscopy and has been doing well until he twisted and since then has had catching and locking in his knee. He reports pain on the medial aspect of his knee. He reports that it locks and catches. He reports underwent an injection, which provided only temporary relief of his symptoms. Due to continued mechanical symptoms, the patient elected to proceed with surgical intervention. REVIEW OF SYSTEMS: No chest pain, no shortness of breath. No dysuria. PAST MEDICAL HISTORY: Lumbar pain, depression, herpes, kidney stones, morbid obesity, cardiomyopathy, obstructive sleep apnea, ear infections, varicose veins, neuropathy, hearing loss, ventral hernia. PAST SURGICAL HISTORY: ORIF of the left elbow, gastric bypass, kidney stone removal, cholecystectomy, left knee arthroscopy, right knee arthroscopy. FAMILY HISTORY: Significant for chronic obstructive pulmonary disease, Crohn's disease, coronary artery disease, rheumatoid arthritis, hypertension, diabetes mellitus. Primary care provider is [facility]. MEDICATIONS: Zanaflex, Lyrica, Sildenafil, furosemide, Vraylar, pantoprazole, lisinopril, Celebrex, Viibryd. ALLERGIES: COREG. SOCIAL HISTORY: PHYSICAL EXAMINATION: The patient drinks alcohol socially. Denies tobacco use The patient is well-developed, well-nourished, in no acute distress. HEENT: Normocephalic, atraumatic. Pupils are equal, round and reactive to light. Oropharynx is clear. NECK: Supple. No lymphadenopathy. LUNGS: Clear to auscultation bilaterally. HEART: Regular rate and rhythm. ABDOMEN: Soft, nontender, nondistended. EXTREMITIES: The right knee demonstrates marked tenderness along the medial joint line. He has a positive Lior's with an audible click noted and pain elicited. He has a moderate effusion. He is ambulating with an antalgic gait. There is no varus or valgus laxity. Negative anterior and posterior drawer. Active range of motion 0/3/125. IMPRESSION: Right knee medial meniscus tear with associated chondromalacia. PLAN: Right knee arthroscopy with chondroplasty, partial medial meniscectomy. The risks, benefits, options were complications and recovery were discussed at length with the patient. He understands and wishes to proceed. This will be for outpatient surgery on 03/08/2022. Job ID: [id number] DocumentID: [id number] Dictated Date: 02/24/2022 12:21:34 Play Leader Date: 02/24/2022 14:07:00 Dictated By: PETER GILLIS MD
[~2022-03-08] VITALS: Ht 198 cm; Wt 193.2 kg
[2022-03-08] VITALS (9 sets, daily range): BP systolic 85–113; BP diastolic 41–68
[~2022-03-08 07:57] MED LIST changes: +BREX2TAB PO; +oxyCODONE/APAP 5/325MG (PERCOCET 5) TABLET PO PRN
[2022-03-08] MEDS ORDERED: LACTATED RINGERS 1,000 ML IV PRN (08:15)
[2022-03-08] MEDS ORDERED: ceFAZolin INJECTION 2,000 MG in NS (IVPB) 50 ML IV ONE (08:15)
[2022-03-08] MEDS ORDERED: fentaNYL INJ 100 MCG/2 ML AMP ONE (08:34)
[2022-03-08] MEDS ORDERED: MIDAZOLAM 2 MG/2 ML (VERSED) VIAL ONE (08:34)
[2022-03-08] MEDS ORDERED: LIDOCAINE PF 2% 5 ML (XYLOCAINE) VIAL ONE (08:34)
[2022-03-08] MEDS ORDERED: proPOfol 200 MG/20 ML (DIPRIVAN) VIAL IV ONE (08:34)
[2022-03-08] MEDS ORDERED: ONDANSETRON 4 MG/2 ML (SDV) Z0FRAN ONE (08:35)
[2022-03-08] MEDS ORDERED: BUPIVACAINE 0.25% 30 ML (SENSORCAINE) VIAL ONE (08:44)
[2022-03-08] MEDS ORDERED: morphine PF (DURAMORPH) 10 MG/10 ML AMP ONE (08:44)
--- NOTE | 2022-03-08 09:07 | Progress Note-Post Operative ---
Post-Operative Progess Note Surgeon (s)/Intellectual Property Legal Assistant (s) Surgeon PETER GILLIS MD Intellectual Property Legal Assistant: Elio Shen Pre-Operative Diagnosis right knee chondromalacia and medial meniscus tear Post-Operative Diagnosis right knee chondromalacia of the lateral femoral condyle and lateral tibial plateau and medial meniscus tear Procedure & Operative Findings Date of Procedure 03/08/22 Procedure Performed/Findings right knee arthroscopic chondroplasty of the lateral femoral condyle and lateral tibial plateau and partial medial meniscectomy Anesthesia Type GETA Estimated Blood Loss Estimated blood loss (mL): minimal Specimens/Packing Specimens Removed none Packing: none PETER GILLIS MD Mar 08, 2022 09:07
--- NOTE | 2022-03-08 09:07 | Progress Note-Pre Operative ---
Pre-Operative Progress Note Date of Available H&P: Feb 24, 2022 Date H&P Reviewed: Mar 08, 2022 Time H&P Reviewed: 07:11 Changes from last HP none Pre-Operative Diagnosis: right knee chondromalacia and medial meniscus tear PETER GILLIS MD Mar 08, 2022 09:06
[2022-03-08] MEDS ORDERED: SEVOFLURANE (ULTANE) 15 ML INHAL SOLN ONE (09:39)
[2022-03-08] MEDS ORDERED: ONDANSETRON 4 MG/2 ML (SDV) Z0FRAN IVP PRN (10:00)
[2022-03-08] MEDS ORDERED: morphine INJ 10 MG/ML 1ML (SYR OR VIAL) IVP ONE (10:00)
--- NOTE | 2022-03-08 11:55 | Anesthesia-General Post-Op ---
General Patient Condition Mental Status/LOC: Same as Preop Cardiovascular: Satisfactory Nausea/Vomiting: Absent Respiratory: Satisfactory Pain: Controlled Complications: Absent Post Op Complications Complications None Follow Up Care/Instructions Patient Instructions None needed. Anesthesia/Patient Condition Patient Condition Patient is doing well, no complaints, stable vital signs, no apparent adverse anesthesia problems. No complications reported per nursing. JOEL ESPINOZA CRNA Mar 08, 2022 11:55
--- NOTE | 2022-03-08 19:53 | OPERATIVE REPORT ---
DATE OF SERVICE: 03/08/2022 PREOPERATIVE DIAGNOSIS: Right knee medial meniscus tear. POSTOPERATIVE DIAGNOSES: 1. Right knee medial meniscus tear. 2. 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 3. Right knee chondromalacia of lateral tibial plateau. PROCEDURES: 1. Right knee arthroscopic partial medial meniscectomy. 2. Right knee arthroscopic chondroplasty of lateral femoral condyle. 3. Right knee arthroscopic chondroplasty of the lateral tibial plateau. SURGEON: Tomy Gillis MD SQUADRON WORKER: Elio Shen, who assisted throughout the procedure and closed the incisions. ANESTHESIA: General endotracheal by Jay Holcomb CRNA. TOURNIQUET TIME: ESTIMATED BLOOD LOSS: Minimal. DRAINS: None. COMPLICATIONS: None. POSTOPERATIVE PLAN: Routine arthroscopy protocol. The patient was transferred to recovery room awake and in stable condition. STATEMENT OF MEDICAL NECESSITY: The patient is a 51-year-old gentleman who had previously undergone right knee arthroscopy and had been doing well till it twisted and heard a pop. Since has been having anterior medial knee pain, catching and locking. He had tried rest, activity modifications, and anti-inflammatories without relief. Due to functional impairment and failure to improve with conservative measures, the patient elected to proceed with surgical intervention. Examination under anesthesia revealed range of motion of 0/0/120 with negative Brandan, negative anterior and posterior drawer. No varus or valgus flexion, negative pivot shift. Arthroscopic findings demonstrated a grade IV chondral loss of the central portion of the patella in a 20 x 20 area with no unstable chondral flaps. Trochlea demonstrated no gross chondral abnormalities, but diffuse grade III chondral loss. The medial and lateral gutters were clear. The ACL and PCL were intact. The medial compartment demonstrated a tear of the anterior horn of the medial meniscus approximately 30% in the anterior horn. No significant chondral pathology was noted. The lateral compartment demonstrated a grade IV chondral flap in the anterior aspect of the femoral condyle in a 10 x 10 area and a grade IV chondral flap in the central portion of the tibial plateau in an 8 x 8 area. No meniscal pathology was noted laterally. DESCRIPTION OF PROCEDURE: After risks and benefits of procedure were discussed and questions were answered, informed consent was signed and placed on the chart. The operative site was confirmed in the preoperative holding area initialed by surgeon. The patient was then transferred to the operating room. After adequate level of general endotracheal anesthetic was obtained, a timeout was called, confirming the operative site. An examination under anesthesia was performed with the above findings noted. The right lower extremity was prepped and draped in the usual sterile fashion. The knee joint was injected with 60 mL of fluid and standard inferolateral portal was placed through the arthroscope and under direct visualization, an inferomedial portal was created. The menisci and cruciates were carefully probed with the above findings noted. The unstable chondral flaps on the lateral femoral condyle and lateral tibial plateau were debrided with the shaver back to a stable edge. The scope was then redirected into the medial compartment where the anterior horn of the medial meniscus was debrided with a shaver back to a stable edge. This was carefully probed with no further tearing or instability noted. The knee was copiously irrigated. Portal sites were closed with 4-0 nylon in simple interrupted fashion. Knee was injected with Duramorph. The port sites were infiltrated with plain Marcaine. A soft dressing was applied. The patient was transferred to recovery room awake and stable condition. Job ID: [id number] DocumentID: [id number] Dictated Date: 03/08/2022 09:44:05 Edge Cutter Date: 03/08/2022 19:50:00 Dictated By: TOMY GILLIS MD
== END 2022-03-08 11:20 | disposition home or self-care (01) ==
LOC: SDC 07:57
PROVIDERS: ATTEND Orthopaedic Surgery
DX: S83.241A Other tear of medial meniscus, current injury, right knee, initial encounter (principal); M94.261 Chondromalacia, right knee; E66.01 Morbid (severe) obesity due to excess calories; Z68.42 Body mass index [BMI] 45.0-49.9, adult; X58.XXXA Exposure to other specified factors, initial encounter
CPT/HCPCS: 87081